=== PATIENT | female | born 1955 | race Caucasian/White ===

== ENCOUNTER 2021-03-23 10:15 | Outpatient (REF) | payer MEDICARE, SELFPAY ==
[2021-03-26 02:17] LABS: HPV mRNA E6/E7 Not Detected (Not Detected)
== END 2021-03-23 10:16 | disposition home or self-care (01) ==
LOC: HO.LAB 10:15
PROVIDERS: Visit Provider Internal Medicine
DX: Z12.4 Encounter for screening for malignant neoplasm of cervix (principal); Z11.51 Encounter for screening for human papillomavirus (HPV)
CPT/HCPCS: 87624; 88142

== ENCOUNTER 2021-04-09 07:13 | Outpatient (REF) | payer MEDICARE, SELFPAY ==
[2021-04-09 11:30] LABS: Hemoglobin 15.3 g/dl (12.0-16.0); Mean Corpuscular HGB Conc 33.3 g/dl (31.0-35.0); Mean Corpuscular Volume 87.1 fL (80.0-98.0); Mean Platelet Volume 12.1 fL (9.4-12.3); Platelet Count 172 X10*3/uL (160-400); Red Blood Count 5.28 X10*6/uL (4.20-5.50); Red Cell Distribution Width 12.4 % (11.0-16.0); White Blood Count 4.9 X10*3/uL (4.8-10.8)
[2021-04-09 11:38] LABS: Appearance Urine CLOUDY; Color Urine YELLOW; Glucose Urine UA 100 MG/DL (NEG); Leukocyte Esterase Urine NEG (NEG); Nitrite Urine NEG (NEG); PH 5.5 (5.0-8.0); Specific Gravity - Urine 1.025 (1.005-1.025); Urine Blood NEG (NEG); Urine Ketones NEG (NEG); Urine Protein TRACE MG/DL (NEG-TRACE)
[2021-04-09 11:57] LABS: Squamous Epithelial Cell Urine 3+ /LPF
[2021-04-09 11:58] LABS: Amorphous Sediment Urine 2+ /LPF
[2021-04-09 11:59] LABS: Bacteria Urine 1+ /LPF; RBC Urine 0 /HPF (0); WBC Urine 0-2 /HPF (0-4)
[2021-04-09 12:06] LABS: Alanine Aminotransferase 59 U/L (0-31); Albumin Level 4.3 g/dL (3.5-5.0); Alkaline Phosphatase 100 U/L (39-117); Anion Gap 14 (12-20); Aspartate Amino Transferase 44 U/L (5-31); Bilirubin Total 0.6 mg/dL (0.0-1.0); Blood Urea Nitrogen 14 mg/dL (9-16); Calcium 9.5 mg/dL (8.4-10.2); Carbon Dioxide 23 mmol/L (22-29); Chloride 104 mmol/L (96-108); Cholesterol 199 mg/dL; Estimated Glomerular Filt Rate > 60; Glucose Fasting 237 mg/dL (60-99); HDL Cholesterol 41 mg/dL; LDL Cholesterol Calculated 111 mg/dl; Potassium 4.4 mmol/L (3.3-5.1); Sodium 137 mmol/L (135-145); Total Protein 7.9 g/dL (6.5-8.0); Triglycerides 235 mg/dL
[2021-04-09 12:12] LABS: TSH reflex Free T4 1.69 uIU/mL (0.32-4.0)
== END 2021-04-09 07:14 | disposition home or self-care (01) ==
LOC: HO.HMGCLDS 07:13
PROVIDERS: PCP Internal Medicine; Visit Provider Internal Medicine
DX: Z00.00 Encounter for general adult medical examination without abnormal findings (principal); I10 Essential (primary) hypertension
CPT/HCPCS: 36415; 80053; 80061; 81001; 84443; 85027

== ENCOUNTER 2021-04-19 07:24 | Outpatient (REF) | payer MEDICARE, SELFPAY ==
[2021-04-19 12:14] LABS: Anion Gap 17 (12-20); Blood Urea Nitrogen 15 mg/dL (9-16); Carbon Dioxide 21 mmol/L (22-29); Chloride 103 mmol/L (96-108); Estimated Glomerular Filt Rate > 60; Glucose Fasting 232 mg/dL (60-99); Potassium 4.6 mmol/L (3.3-5.1); Sodium 136 mmol/L (135-145)
[2021-04-19 12:54] LABS: Estimated Average Glucose 249 mg/dL; Hemoglobin A1c % 10.3 %
== END 2021-04-19 07:25 | disposition home or self-care (01) ==
LOC: HO.HMGCLDS 07:24
PROVIDERS: PCP Internal Medicine; Visit Provider Internal Medicine
DX: R73.9 Hyperglycemia, unspecified (principal)
CPT/HCPCS: 36415; 80048; 83036

== ENCOUNTER → 2021-04-28 10:07 | Outpatient (BNVA) | payer MEDICARE, SELFPAY | PROVIDERS: PCP Internal Medicine; Visit Provider Dietitian, Registered | DX: E11.9 Type 2 diabetes mellitus without complications (principal) | CPT/HCPCS: 97802 ==

== ENCOUNTER 2021-05-27 10:57 | Outpatient (REF) | payer MEDICARE, SELFPAY ==
--- NOTE | ~2021-05-27 | MM_ITS ---
EXAMINATION: MM SCREENING DIGITAL BREAST TOMOSYNTHESIS, BILATERAL CLINICAL INFORMATION: Screening. Asymptomatic. The lifetime risk of breast cancer based on the Tyrer-Cuzick Model is 13%. COMPARISON: Mammography: February 26, 2016 and studies dating back to February 01, 2007 TECHNIQUE: Digital breast tomosynthesis is performed in both the craniocaudal and mediolateral oblique views along with computer-aided detection (CAD). Synthesized 2D images are generated from the tomosynthesis. FINDINGS: The breasts are almost entirely fatty (ACR BI-RADS breast composition Category a). There are no significant masses, abnormal calcifications, or other abnormalities. MM/MM tomosynthesis screening BI IMPRESSION: There are no significant changes from prior study. ASSESSMENT: BI-RADS 1: Negative RECOMMENDATION: Routine annual mammography screening. This patient's information was entered into a reminder system with a target due date for their next mammogram.
== END 2021-05-27 10:58 | disposition home or self-care (01) ==
LOC: HO.MAMMO 10:57
PROVIDERS: PCP Internal Medicine; Visit Provider Internal Medicine
DX: Z12.31 Encounter for screening mammogram for malignant neoplasm of breast (principal)
CPT/HCPCS: 77063; 77067

== ENCOUNTER → 2021-06-08 10:29 | Outpatient (BNVA) | payer MEDICARE, SELFPAY | PROVIDERS: PCP Internal Medicine; Referring Provider Internal Medicine; Visit Provider Nurse Practitioner | DX: Z12.11 Encounter for screening for malignant neoplasm of colon (principal) | CPT/HCPCS: 99202 ==

== ENCOUNTER → 2021-06-29 10:46 | Outpatient (BNVA) | payer MEDICARE, SELFPAY | PROVIDERS: PCP Internal Medicine; Visit Provider Dietitian, Registered | DX: E11.9 Type 2 diabetes mellitus without complications (principal) | CPT/HCPCS: 97803 ==

== ENCOUNTER 2021-07-30 07:22 | Outpatient (REF) | payer MEDICARE, SELFPAY ==
[2021-07-30 12:15] LABS: Alanine Aminotransferase 31 U/L (0-31); Albumin Level 4.6 g/dL (3.5-5.0); Alkaline Phosphatase 80 U/L (39-117); Anion Gap 16 (12-20); Aspartate Amino Transferase 25 U/L (5-31); Bilirubin Total 0.7 mg/dL (0.0-1.0); Blood Urea Nitrogen 22 mg/dL (9-16); Calcium 10.3 mg/dL (8.4-10.2); Carbon Dioxide 23 mmol/L (22-29); Chloride 104 mmol/L (96-108); Cholesterol 190 mg/dL; Estimated Glomerular Filt Rate > 60; Glucose Fasting 148 mg/dL (60-99); HDL Cholesterol 43 mg/dL; LDL Cholesterol Calculated 106 mg/dl; Potassium 4.2 mmol/L (3.3-5.1); Sodium 139 mmol/L (135-145); Total Protein 8.3 g/dL (6.5-8.0); Triglycerides 205 mg/dL
[2021-07-30 12:37] LABS: Estimated Average Glucose 151 mg/dL; Hemoglobin A1c % 6.9 %
[2021-07-30 12:41] LABS: Creatinine Urine 100.24 mg/dL; Microalbum/Creatinine Ratio Ur 62.8 ug/mg cr
== END 2021-07-30 07:23 | disposition home or self-care (01) ==
LOC: HO.HMGCLDS 07:22
PROVIDERS: Visit Provider Internal Medicine
DX: E11.9 Type 2 diabetes mellitus without complications (principal); I10 Essential (primary) hypertension
CPT/HCPCS: 36415; 80053; 80061; 82043; 83036

== ENCOUNTER 2021-11-05 07:57 | Outpatient (REF) | payer MEDICARE, SELFPAY ==
[2021-11-05 11:33] LABS: Estimated Average Glucose 143 mg/dL; Hemoglobin A1c % 6.6 %
[2021-11-05 11:59] LABS: Alanine Aminotransferase 30 U/L (0-31); Albumin Level 4.7 g/dL (3.5-5.0); Alkaline Phosphatase 82 U/L (39-117); Anion Gap 15 (12-20); Aspartate Amino Transferase 22 U/L (5-31); Bilirubin Total 0.5 mg/dL (0.0-1.0); Blood Urea Nitrogen 19 mg/dL (9-16); Carbon Dioxide 22 mmol/L (22-29); Chloride 104 mmol/L (96-108); Cholesterol 215 mg/dL; Estimated Glomerular Filt Rate > 60; Glucose Fasting 129 mg/dL (60-99); HDL Cholesterol 44 mg/dL; LDL Cholesterol Calculated 113 mg/dl; Potassium 4.4 mmol/L (3.3-5.1); Sodium 137 mmol/L (135-145); Total Protein 8.3 g/dL (6.5-8.0); Triglycerides 294 mg/dL
== END 2021-11-05 07:58 | disposition home or self-care (01) ==
LOC: HO.HMGCLDS 07:57
PROVIDERS: PCP Internal Medicine; Visit Provider Internal Medicine
DX: E11.9 Type 2 diabetes mellitus without complications (principal); I10 Essential (primary) hypertension
CPT/HCPCS: 36415; 80053; 80061; 83036

== ENCOUNTER 2022-03-16 07:38 | Outpatient (REF) | payer MEDICARE, SELFPAY ==
[2022-03-16 11:45] LABS: Estimated Average Glucose 143 mg/dL; Hemoglobin A1c % 6.6 %
[2022-03-16 11:51] LABS: Alanine Aminotransferase 31 U/L (0-31); Albumin Level 4.6 g/dL (3.5-5.0); Alkaline Phosphatase 76 U/L (39-117); Anion Gap 17 (12-20); Aspartate Amino Transferase 23 U/L (5-31); Bilirubin Total 0.4 mg/dL (0.0-1.0); Blood Urea Nitrogen 15 mg/dL (9-16); Calcium 9.9 mg/dL (8.4-10.2); Carbon Dioxide 22 mmol/L (22-29); Chloride 105 mmol/L (96-108); Cholesterol 199 mg/dL; Estimated Glomerular Filt Rate > 60; Glucose Fasting 131 mg/dL (60-99); HDL Cholesterol 42 mg/dL; LDL Cholesterol Calculated 105 mg/dl; Potassium 4.2 mmol/L (3.3-5.1); Sodium 140 mmol/L (135-145); Triglycerides 260 mg/dL
[2022-03-16 12:13] LABS: TSH reflex Free T4 2.57 uIU/mL (0.32-4.0)
[2022-03-16 12:14] LABS: Creatinine Urine 83.85 mg/dL; Microalbum/Creatinine Ratio Ur 29.8 ug/mg cr
== END 2022-03-16 07:39 | disposition home or self-care (01) ==
LOC: HO.HMGCLDS 07:38
PROVIDERS: PCP Internal Medicine; Visit Provider Internal Medicine
DX: I10 Essential (primary) hypertension (principal); E11.9 Type 2 diabetes mellitus without complications
CPT/HCPCS: 36415; 80053; 80061; 82043; 83036; 84443

== ENCOUNTER 2022-05-31 11:09 | Outpatient (REF) | payer MEDICARE, SELFPAY ==
--- NOTE | ~2022-05-31 | MM_ITS ---
EXAMINATION: MM SCREENING DIGITAL BREAST TOMOSYNTHESIS, BILATERAL CLINICAL INFORMATION: Screening. Asymptomatic. The lifetime risk of breast cancer based on the Tyrer-Cuzick Model is 10%. COMPARISON: Mammography: 05/27/2021, 02/26/2016 TECHNIQUE: Digital breast tomosynthesis is performed in both the craniocaudal and mediolateral oblique views along with computer-aided detection (CAD). Synthesized 2D images are generated from the tomosynthesis. FINDINGS: There are scattered areas of fibroglandular density (ACR BI-RADS breast composition Category b). There are no significant masses, abnormal calcifications, or other abnormalities. Parenchymal pattern is similar to prior studies. There is no developing density or architectural abnormality. The axilla and skin contours are unremarkable. No significant changes. MM/MM tomosynthesis screening BI IMPRESSION: No mammographic evidence of malignancy. ASSESSMENT: BI-RADS 1: Negative RECOMMENDATION: Routine annual mammography screening. This patient's information was entered into a reminder system with a target due date for their next mammogram.
== END 2022-05-31 11:10 | disposition home or self-care (01) ==
LOC: HO.MAMMO 11:09
PROVIDERS: PCP Internal Medicine; Visit Provider Internal Medicine
DX: Z12.31 Encounter for screening mammogram for malignant neoplasm of breast (principal)
CPT/HCPCS: 77063; 77067

== ENCOUNTER 2022-08-26 07:47 | Outpatient (REF) | payer MEDICARE, SELFPAY ==
[2022-08-26 12:04] LABS: Estimated Average Glucose 134 mg/dL; Hemoglobin A1c % 6.3 %
[2022-08-26 12:18] LABS: Creatinine Urine 68.88 mg/dL; Microalbum/Creatinine Ratio Ur 21.7 ug/mg cr
[2022-08-26 12:46] LABS: Alanine Aminotransferase 30 U/L (0-31); Albumin Level 4.6 g/dL (3.5-5.0); Alkaline Phosphatase 79 U/L (39-117); Anion Gap 16 (12-20); Aspartate Amino Transferase 23 U/L (5-31); Bilirubin Total 0.6 mg/dL (0.0-1.0); Blood Urea Nitrogen 19 mg/dL (9-16); Calcium 10.2 mg/dL (8.4-10.2); Carbon Dioxide 24 mmol/L (22-29); Chloride 105 mmol/L (96-108); Cholesterol 205 mg/dL; Estimated Glomerular Filt Rate > 60; Glucose Fasting 132 mg/dL (60-99); HDL Cholesterol 38 mg/dL; LDL Cholesterol Calculated 90 mg/dl; Potassium 4.7 mmol/L (3.3-5.1); Sodium 140 mmol/L (135-145); Triglycerides 389 mg/dL
== END 2022-08-26 07:48 | disposition home or self-care (01) ==
LOC: HO.HMGCLDS 07:47
PROVIDERS: PCP Internal Medicine; Visit Provider Internal Medicine
DX: E11.9 Type 2 diabetes mellitus without complications (principal); I10 Essential (primary) hypertension
CPT/HCPCS: 36415; 80053; 80061; 82043; 83036

== ENCOUNTER 2022-12-28 07:54 | Outpatient (REF) | payer MEDICARE, SELFPAY ==
[2022-12-28 11:32] LABS: MANUAL DIFF FLAG NO
[2022-12-28 11:45] LABS: Basophils Absolute Auto 0.1 X10*3/uL (0.0-0.2); Eosinophils Absolute Auto 0.1 X10*3/uL (0.0-0.4); Eosinophils Percent Auto 1.1 % (0-4); Hematocrit 46.7 % (37.0-47.0); Hemoglobin 15.2 g/dl (12.0-16.0); Imm Gran Abs Auto 0.01 X10*3/uL (0.00-0.03); Imm Gran Pct Auto 0.2 % (0.0-0.4); Lymphocytes Absolute Auto 2.4 X10*3/uL (1.2-4.9); Lymphocytes Percent Auto 38.4 % (20-40); Mean Corpuscular HGB Conc 32.5 g/dl (31.0-35.0); Mean Corpuscular Hemoglobin 29.1 pg (27.0-33.0); Mean Corpuscular Volume 89.3 fL (80.0-98.0); Mean Platelet Volume 11.2 fL (9.4-12.3); Monocytes Absolute Auto 0.5 X10*3/uL (0.1-1.2); Monocytes Percent Auto 7.3 % (2-11); Neutrophils Absolute Auto 3.2 x10*3/uL (2.0-8.3); Platelet Count 191 X10*3/uL (160-400); Red Blood Count 5.23 X10*6/uL (4.20-5.50); Red Cell Distribution Width 13.4 % (11.0-16.0); White Blood Count 6.1 X10*3/uL (4.8-10.8)
[2022-12-28 11:52] LABS: Estimated Average Glucose 134 mg/dL; Hemoglobin A1c % 6.3 %
[2022-12-28 12:12] LABS: Alanine Aminotransferase 37 U/L (0-31); Albumin Level 4.3 g/dL (3.5-5.0); Alkaline Phosphatase 70 U/L (39-117); Anion Gap 14 (12-20); Aspartate Amino Transferase 29 U/L (5-31); Bilirubin Total 0.4 mg/dL (0.0-1.0); Blood Urea Nitrogen 31 mg/dL (9-16); Calcium 9.9 mg/dL (8.4-10.2); Carbon Dioxide 20 mmol/L (22-29); Chloride 110 mmol/L (96-108); Cholesterol 194 mg/dL; Estimated Glomerular Filt Rate > 60; Glucose Fasting 115 mg/dL (60-99); HDL Cholesterol 43 mg/dL; LDL Cholesterol Calculated 107 mg/dl; Potassium 4.2 mmol/L (3.3-5.1); Sodium 140 mmol/L (135-145); Total Protein 7.9 g/dL (6.5-8.0); Triglycerides 220 mg/dL
[2022-12-28 12:28] LABS: Creatinine Urine 110.49 mg/dL; Microalbum/Creatinine Ratio Ur 17.1 ug/mg cr
== END 2022-12-28 07:55 | disposition home or self-care (01) ==
LOC: HO.HMGCLDS 07:54
PROVIDERS: PCP Internal Medicine; Visit Provider Internal Medicine
DX: E11.9 Type 2 diabetes mellitus without complications (principal); I10 Essential (primary) hypertension
CPT/HCPCS: 36415; 80053; 80061; 82043; 83036; 85025

== ENCOUNTER 2022-12-30 08:45 | Outpatient (AMB) | payer MEDICARE, SELFPAY ==
--- NOTE | 2022-12-30 08:45 | MHC.PC.OV ---
Vital Signs 12/30/22 08:46 Height 5 ft 8 in Weight 193 lb BMI 29.3 BP 130/80 Blood Pressure Location Lt brachial Position Sitting Pulse 85 Pulse Source Pulse Oximeter Pulse Oximetry (%) 96 Oxygen Delivery Method Room Air Intake Visit Reasons: 4M Follow up HTN Intake Note: Pt is here today for 4 months follow up visit. Allergies No Known Allergies Allergy (Verified 12/30/22 08:47) Medication List - Last Reconciled 12/30/22 by Nafisa Witt MD blood sugar diagnostic (OneTouch Ultra Test strips) 1 qd blood-glucose meter (I3 PrecisionTouch Ultra2 Meter) As directed empagliflozin (Jardiance) 25 mg PO DAILY irbesartan 300 mg PO DAILY lancets (OneTouch Delica Lancets) 1 QD metformin 850 mg PO DAILY Tobacco use date assessed: 08/30/22 Dental Screening Dental Screen Date: 12/30/22 Did you have a dental visit in the last 12 months?: Yes Did you have a dental problem in the last 6 months where you did not have access to dental care?: No Was dental information given to patient?: Patient has dentist HPI 4M Follow up HTN HPI Details Pt presents for f/u HTN, DM 2, stable on meds. Pt c/o R shoulder pain worse when lifting above head for 2 months. PFSH Medical History Annual physical exam Diarrhea DM type 2 (diabetes mellitus, type 2) Hyperglycemia Hypertension Surgical History H/O neck surgery History of colonoscopy History of right knee joint replacement Previous back surgery Family History Father Cancer Mother COPD (chronic obstructive pulmonary disease) Heart disease Social History Household Members Other:: walking, , 2 adults, 5 grandsons, Housing: Apartment Alcohol intake: current Alcohol intake frequency: a few times a month Patient Tobacco Use Status: Never used Tobacco e-Cigarette/Vaping Use: Never Used Second Hand Smoke Exposure: No Current occupational status: retired Cognitive needs: No Hearing needs: No Vision needs: Yes Questionnaire Thrive Questionnaire Date Thrive assessed: 08/30/22 VIN-7 AMB Questionnaire VIN-7 Date VIN - 7 assessed: 08/30/22 Source: Developed by Drs. Ryan Gates, Rosaline Stratton, Morgan Melchor and colleagues, with an educational praveen from [employer]. Review of Systems Const All systems reviewed & are unremarkable except as noted in HPI and below Reports no additional complaints Eyes Reports no additional complaints ENT Reports no additional complaints Card Reports no additional complaints Reports no additional complaints Musc Reports no additional complaints Physical exam (Primary Care) Vital Signs: Last Vital Signs Pulse 85 12/30/22 08:46 BP 130/80 12/30/22 08:46 Pulse Ox 96 12/30/22 08:46 Oxygen Delivery Method Room Air 12/30/22 08:46 BMI result Body Mass Index 29.3 Tobacco/Smoking Status: Tobacco use Status Tobacco use date assessed 08/30/22 12/30/22 08:45 Patient Tobacco Use Status Never used Tobacco 12/30/22 08:45 e-Cigarette/Vaping Use Never Used 12/30/22 08:45 Thrive Assessment: Date of Thrive Assessment Date Thrive assessed 08/30/22 12/30/22 08:45 Const General: no acute distress HENMT Head: Yes normal to inspection Ears: hearing grossly normal bilaterally Face and sinus: Yes normal facial exam Neck Neck: Yes supple Resp Effort & Inspection: normal respiratory effort Auscultation: clear to auscultation bilaterally Cardio Rhythm: regular rhythm Heart sounds: S1 normal heart sound present and S2 normal heart sound present GI Inspection: Yes normal to inspection Palpation (GI): Soft to palpation Percussion: Yes normal to percussion Auscultation: normal bowel sounds Extrem Other: decreased range of motion of the right shoulder, anterio- lateral aspect tenderness Assessment and Plan Assessment & Plan (1) Shoulder pain, right: Code(s): M25.511 - Pain in right shoulder Plan: Refer for physical therapy (2) DM type 2 (diabetes mellitus, type 2): Code(s): E11.9 - Type 2 diabetes mellitus without complications Plan: A1c is persistently at 6.3 ADA diet increase physical activity weight loss discussed with the patient. Ozempic 0.25 mg weekly will be added and patient will follow-up in 3 months with a fasting my before (3) Hypertension: Code(s): I10 - Essential (primary) hypertension Plan: Continue current medications Orders: Orders PT Evaluation and Treatment Today E11.9 - Type 2 diabetes mellitus without complications, I10 - Essential (primary) hypertension, M25.511 - Pain in right shoulder Comprehensive [place]. Panel Fast 3 Months E11.9 - Type 2 diabetes mellitus without complications, I10 - Essential (primary) hypertension Complete Blood Count Auto Diff 3 Months E11.9 - Type 2 diabetes mellitus without complications, I10 - Essential (primary) hypertension Hemoglobin A1c 3 Months E11.9 - Type 2 diabetes mellitus without complications, I10 - Essential (primary) hypertension Lipid Panel 3 Months E11.9 - Type 2 diabetes mellitus without complications, I10 - Essential (primary) hypertension Microalbumin, Random (w Creat) 3 Months E11.9 - Type 2 diabetes mellitus without complications, I10 - Essential (primary) hypertension Medications: New semaglutide (Ozempic) 0.25 mg (0.368 mL) subcut QWEEK 9 mL 1RF Coding Level of Care Code Est Pt Level 4 (66649) Diagnoses Shoulder pain, right M25.511 DM type 2 (diabetes mellitus, type 2) E11.9 Hypertension I10
[2022-12-30 08:46] VITALS: BP 130/80; PULSE 85; O2SAT 96; BMI 29.3
== END 2022-12-30 09:13 | disposition home or self-care (01) ==
PROVIDERS: PCP Internal Medicine; Visit Provider Internal Medicine
DX: M25.511 Pain in right shoulder (principal); E11.9 Type 2 diabetes mellitus without complications; I10 Essential (primary) hypertension
CPT/HCPCS: 99214

== ENCOUNTER 2023-01-24 11:00 | Outpatient (RCR) | payer MEDICARE, SELFPAY ==
--- NOTE | 2023-01-09 11:45 | MHC.PT.EP ---
[facility] [place] Office [place] Office [place] Office [address] Galina Richards [address] [phone] F: [phone] F: [phone] F: [phone] F: [phone] Physical Therapy Plan of Care Date of Evaluation: Date of Surgery: n/a Diagnosis: pain in R shoulder Assessment: Patient is a 67 year old female presenting to PT with complaints of pain in her R shoulder. Pt reports onset of pain began about 3 months ago due to insidious onset. She presents today with impairments in pain, ROM, shoulder strength, posture. Pt's current occupation is retired, with baseline physical activities including reaching, lifting, ADLs, cooking, lifting grandkids. Pt expresses shelter goal of reducing pain, and is motivated to work towards this in PT. Clinical presentation today is most consistent with signs and sx associated with possible R RC tendonitis and pt will benefit from skilled PT 2 week x 4 weeks to address the following problems and impairments noted upon evaluation: pain, ROM, shoulder strength, posture. These problems limit the patient with the following functional activities: reaching, lifting, ADLs, cooking, lifting grandkids . The prescribed treatment plan of care is medically necessary. Co-morbidities of HTN, T2DM were identified and taken into considerations of plan of care. Pt was educated on HEP, role of PT, prognosis, POC. Frequency and Duration: The patient will be seen 2 x week x 4 weeks Short Term Goals: Pt will demonstrate shoulder ROM equal B in 2 weeks. Pt will demonstrate improved R shoulder MMT strength 5/5 in 2 weeks. Pt will demonstrate improved postural awareness by sitting with biomechanically correct posture without cues throughout session to improve overall postural function in 2 weeks. C Architect Goals: Pt will demonstrate improved SPADI score by 13 points in 4 weeks for improved functional mobility. Pt will demonstrate ability to reach and lift with min to no pain in 4 weeks for improved tolerance to ADLs. Pt will demonstrate ability to cook including chopping and cookie decorating in 4 weeks with min to no pain. Treatment Plan: Modalities to reduce pain, spasms and effusion. Manual therapy to restore motion and function. Therapeutic exercise to improve strength and flexibility. Neuromuscular re-education for posture and balance. Therapeutic activities to return to functional activities of daily living. Electronically signed by: Yohana Rajan, PT, DPT, ATC Please sign and return to therapist. Thank you for your referral.
--- NOTE | 2023-01-30 08:51 | MHC.PT.DC ---
[facility] [place] Office [place] Office [place] Office [address] Galina Richards 140 [facility] [phone] F: [phone] F: [phone] F: [phone] F: [phone] Physical Therapy Discharge Report Diagnosis: pain in R shoulder Date of Surgery: n/a Date of Evaluation: 01/09/23 Date of Discharge: 01/30/23 Treatments to Date: 4 Cancellations to Date: 0 No Shows to Date: 0 Discharge Status: Improved Function Patient Elected to Stop Discharge Summary: Pt self d/c stating she feels better. Electronically signed by: Yohana Rajan, PT, DPT, ATC Please sign and return to therapist. Thank you for your referral.
== END 2023-01-30 08:51 | disposition home or self-care (01) ==
LOC: HO.PTCHIC 11:00
PROVIDERS: PCP Internal Medicine; Visit Provider Internal Medicine
DX: M25.511 Pain in right shoulder (principal)
CPT/HCPCS: 97110; 97161

== ENCOUNTER 2023-04-06 08:01 | Outpatient (REF) | payer MEDICARE, SELFPAY ==
[2023-04-06 11:12] LABS: MANUAL DIFF FLAG NO
[2023-04-06 11:15] LABS: Basophils Absolute Auto 0.1 X10*3/uL (0.0-0.2); Basophils Percent Auto 0.9 % (0-2); Eosinophils Absolute Auto 0.1 X10*3/uL (0.0-0.4); Eosinophils Percent Auto 0.9 % (0-4); Hematocrit 47.7 % (37.0-47.0); Hemoglobin 15.3 g/dl (12.0-16.0); Imm Gran Abs Auto 0.01 X10*3/uL (0.00-0.03); Imm Gran Pct Auto 0.2 % (0.0-0.4); Lymphocytes Absolute Auto 1.8 X10*3/uL (1.2-4.9); Mean Corpuscular HGB Conc 32.1 g/dl (31.0-35.0); Mean Corpuscular Hemoglobin 28.2 pg (27.0-33.0); Mean Corpuscular Volume 87.8 fL (80.0-98.0); Mean Platelet Volume 10.9 fL (9.4-12.3); Monocytes Absolute Auto 0.4 X10*3/uL (0.1-1.2); Monocytes Percent Auto 6.6 % (2-11); Neutrophils Absolute Auto 3.4 x10*3/uL (2.0-8.3); Neutrophils Percent Auto 59.4 % (45-73); Platelet Count 198 X10*3/uL (160-400); Red Blood Count 5.43 X10*6/uL (4.20-5.50); White Blood Count 5.6 X10*3/uL (4.8-10.8)
[2023-04-06 11:20] LABS: Estimated Average Glucose 120 mg/dL; Hemoglobin A1c % 5.8 % (<6.0)
[2023-04-06 11:41] LABS: Alanine Aminotransferase 30 U/L (0-31); Albumin Level 4.2 g/dL (3.5-5.0); Alkaline Phosphatase 75 U/L (39-117); Anion Gap 12 (12-20); Aspartate Amino Transferase 27 U/L (5-31); Bilirubin Total 0.4 mg/dL (0.0-1.0); Blood Urea Nitrogen 19 mg/dL (9-16); Calcium 9.9 mg/dL (8.4-10.2); Carbon Dioxide 26 mmol/L (22-29); Chloride 106 mmol/L (96-108); Cholesterol 167 mg/dL (<200); Estimated Glomerular Filt Rate > 60; Glucose Fasting 91 mg/dL (60-99); HDL Cholesterol 38 mg/dL (>40); LDL Cholesterol Calculated 90 mg/dL (<100); Potassium 4.1 mmol/L (3.3-5.1); Sodium 140 mmol/L (135-145); Triglycerides 199 mg/dL (<150)
[2023-04-06 11:51] LABS: Creatinine Urine 106.14 mg/dL; Microalbum/Creatinine Ratio Ur 34.8 ug/mg cr (<30)
== END 2023-04-06 08:02 | disposition home or self-care (01) ==
LOC: HO.HMGCLDS 08:01
PROVIDERS: PCP Internal Medicine; Visit Provider Internal Medicine
DX: E11.9 Type 2 diabetes mellitus without complications (principal); I10 Essential (primary) hypertension
CPT/HCPCS: 36415; 80053; 80061; 82043; 82570; 83036; 85025

== ENCOUNTER 2023-04-07 12:18 | Outpatient (AMB) | payer MEDICARE, SELFPAY ==
--- NOTE | 2023-04-07 12:20 | MHC.PC.OV ---
Vital Signs 04/07/23 12:22 Height 5 ft 8 in Weight 194 lb BMI 29.5 BP 118/86 Blood Pressure Location Lt brachial Position Sitting Pulse 87 Pulse Source Pulse Oximeter Pulse Oximetry (%) 96 Oxygen Delivery Method Room Air Intake Visit Reasons: 3 month fu Intake Note: Pt is here today for her 3 months f/u Allergies No Known Allergies Allergy (Verified 04/07/23 12:23) Medication List - Last Reconciled 04/07/23 by Nafisa Witt MD blood sugar diagnostic ([employer] Ultra Test strips) 1 qd blood-glucose meter ([employer] Ultra2 Meter) As directed empagliflozin (Jardiance) 25 mg PO DAILY irbesartan 300 mg PO DAILY lancets (OneTouch Delica Lancets) 1 QD metformin 850 mg PO DAILY semaglutide (Ozempic) 0.25 mg (0.368 mL) subcut QWEEK Tobacco use date assessed: 04/07/23 Fall risk assessment: No Falls in past year Last assessed Fall Risk: 04/07/23 Dental Screening Dental Screen Date: 04/07/23 Did you have a dental visit in the last 12 months?: Yes Did you have a dental problem in the last 6 months where you did not have access to dental care?: Yes Was dental information given to patient?: Patient has dentist HPI 3 month fu HPI Details Pt presents for f/u DM2, HTN, stable on meds PFSH Medical History Annual physical exam Diarrhea DM type 2 (diabetes mellitus, type 2) Hyperglycemia Hypertension Surgical History H/O neck surgery History of colonoscopy History of right knee joint replacement Previous back surgery Family History Father Cancer Mother COPD (chronic obstructive pulmonary disease) Heart disease Social History Household Members Other:: walking, , 2 adults, 5 grandsons, Housing: Apartment Alcohol intake: current Alcohol intake frequency: a few times a month Patient Tobacco Use Status: Never used Tobacco e-Cigarette/Vaping Use: Never Used Second Hand Smoke Exposure: No Current occupational status: retired Cognitive needs: No Hearing needs: No Vision needs: Yes Questionnaire Thrive Questionnaire Date Thrive assessed: 08/30/22 VIN-7 AMB Questionnaire VIN-7 Date VIN - 7 assessed: 08/30/22 Source: Developed by Drs. Ryan Gates, Rosaline Stratton, Morgan Melchor and colleagues, with an educational praveen from [employer]. Review of Systems Const All systems reviewed & are unremarkable except as noted in HPI and below Reports no additional complaints Eyes Reports no additional complaints ENT Reports no additional complaints Card Reports no additional complaints Resp Reports no additional complaints GI Reports no additional complaints Reports no additional complaints Physical exam (Primary Care) Vital Signs: Last Vital Signs Pulse 87 04/07/23 12:22 BP 118/86 04/07/23 12:22 Pulse Ox 96 04/07/23 12:22 Oxygen Delivery Method Room Air 04/07/23 12:22 BMI result Body Mass Index 29.5 Tobacco/Smoking Status: Tobacco use Status Tobacco use date assessed 04/07/23 04/07/23 12:25 Patient Tobacco Use Status Never used Tobacco 04/07/23 12:20 e-Cigarette/Vaping Use Never Used 04/07/23 12:20 Thrive Assessment: Date of Thrive Assessment Date Thrive assessed 08/30/22 04/07/23 12:20 Const General: no acute distress HENMT Head: Yes normal to inspection Face and sinus: Yes normal facial exam Throat: Yes posterior oropharynx normal Neck Neck: Yes no lymphadenopathy and Yes supple Resp Effort & Inspection: normal respiratory effort Auscultation: clear to auscultation bilaterally Cardio Rhythm: regular rhythm Heart sounds: S1 normal heart sound present and S2 normal heart sound present GI Inspection: Yes normal to inspection Palpation (GI): Soft to palpation Percussion: Yes normal to percussion Auscultation: normal bowel sounds Assessment and Plan Assessment & Plan (1) DM type 2 (diabetes mellitus, type 2): Code(s): E11.9 - Type 2 diabetes mellitus without complications Plan: A1C is 5.8, cont ADA diet, exercise weight loss. increase Ozempic to 0.5 weekly, f/u 4 months (2) Hypertension: Code(s): I10 - Essential (primary) hypertension Plan: cont med (3) Hyperlipemia: Comment: diet controlled Code(s): E78.5 - Hyperlipidemia, unspecified Plan: improving Orders: Orders Lipid Panel 4 Months E11.9 - Type 2 diabetes mellitus without complications, I10 - Essential (primary) hypertension Comprehensive [place]. Panel Fast 4 Months E11.9 - Type 2 diabetes mellitus without complications, I10 - Essential (primary) hypertension Complete Blood Count Auto Diff 4 Months E11.9 - Type 2 diabetes mellitus without complications, I10 - Essential (primary) hypertension Hemoglobin A1c 4 Months E11.9 - Type 2 diabetes mellitus without complications, I10 - Essential (primary) hypertension Microalbumin, Random (w Creat) 4 Months E11.9 - Type 2 diabetes mellitus without complications, I10 - Essential (primary) hypertension Medications: New meloxicam 15 mg PO DAILY 10 tabs 0RF Changed From semaglutide (Ozempic) 0.25 mg (0.368 mL) subcut QWEEK 9 mL 1RF To semaglutide (Ozempic) 0.5 mg (0.736 mL) subcut QWEEK 9 mL 2RF Coding Level of Care Code Est Pt Level 4 (19578) Diagnoses DM type 2 (diabetes mellitus, type 2) E11.9 Hypertension I10 Hyperlipemia E78.5
[2023-04-07 12:22] VITALS: BP 118/86; PULSE 87; O2SAT 96; BMI 29.5
== END 2023-04-07 12:50 | disposition home or self-care (01) ==
PROVIDERS: PCP Internal Medicine; Visit Provider Internal Medicine
DX: E11.9 Type 2 diabetes mellitus without complications (principal); I10 Essential (primary) hypertension; E78.5 Hyperlipidemia, unspecified
CPT/HCPCS: 99214

== ENCOUNTER 2023-08-08 07:21 | Outpatient (REF) | payer MEDICARE, SELFPAY ==
[2023-08-08 11:35] LABS: MANUAL DIFF FLAG NO
[2023-08-08 11:44] LABS: Basophils Absolute Auto 0.1 X10*3/uL (0.0-0.2); Eosinophils Absolute Auto 0.1 X10*3/uL (0.0-0.4); Eosinophils Percent Auto 1.2 % (0-4); Hematocrit 49.4 % (37.0-47.0); Imm Gran Abs Auto 0.03 X10*3/uL (0.00-0.03); Imm Gran Pct Auto 0.4 % (0.0-0.4); Lymphocytes Absolute Auto 2.5 X10*3/uL (1.2-4.9); Lymphocytes Percent Auto 30.5 % (20-40); Mean Corpuscular HGB Conc 32.4 g/dl (31.0-35.0); Mean Corpuscular Hemoglobin 28.3 pg (27.0-33.0); Mean Corpuscular Volume 87.3 fL (80.0-98.0); Mean Platelet Volume 11.1 fL (9.4-12.3); Monocytes Absolute Auto 0.4 X10*3/uL (0.1-1.2); Monocytes Percent Auto 5.4 % (2-11); Neutrophils Percent Auto 61.5 % (45-73); Platelet Count 215 X10*3/uL (160-400); Red Blood Count 5.66 X10*6/uL (4.20-5.50); Red Cell Distribution Width 14.1 % (11.0-16.0); White Blood Count 8.2 X10*3/uL (4.8-10.8)
[2023-08-08 11:51] LABS: Estimated Average Glucose 117 mg/dL; Hemoglobin A1C 152.4122 umol/L; Hemoglobin A1c % 5.7 % (<6.0)
[2023-08-08 12:09] LABS: Alanine Aminotransferase 28 U/L (0-31); Albumin Level 4.4 g/dL (3.5-5.0); Alkaline Phosphatase 94 U/L (39-117); Anion Gap 14 (12-20); Aspartate Amino Transferase 23 U/L (5-31); Bilirubin Total 0.4 mg/dL (0.0-1.0); Blood Urea Nitrogen 25 mg/dL (9-16); Calcium 10.1 mg/dL (8.4-10.2); Carbon Dioxide 21 mmol/L (22-29); Chloride 108 mmol/L (96-108); Cholesterol 184 mg/dL (<200); Estimated Glomerular Filt Rate > 60; Glucose Fasting 96 mg/dL (60-99); HDL Cholesterol 40 mg/dL (>40); LDL Cholesterol Calculated 99 mg/dL (<100); Potassium 4.4 mmol/L (3.3-5.1); Sodium 139 mmol/L (135-145); Total Protein 8.5 g/dL (6.5-8.0); Triglycerides 225 mg/dL (<150)
== END 2023-08-08 07:22 | disposition home or self-care (01) ==
LOC: HO.HMGCLDS 07:21
PROVIDERS: PCP Internal Medicine; Visit Provider Internal Medicine
DX: E11.9 Type 2 diabetes mellitus without complications (principal); I10 Essential (primary) hypertension
CPT/HCPCS: 36415; 80053; 80061; 83036; 85025

== ENCOUNTER 2023-08-09 07:30 | Outpatient (REF) | payer MEDICARE, SELFPAY ==
[2023-08-09 14:05] LABS: Creatinine Urine 90.81 mg/dL; Microalbum/Creatinine Ratio Ur 14.3 ug/mg cr (<30)
== END 2023-08-09 07:31 | disposition home or self-care (01) ==
LOC: HO.HMGCLNP 07:30
PROVIDERS: PCP Internal Medicine; Visit Provider Internal Medicine
DX: I10 Essential (primary) hypertension (principal); E11.65 Type 2 diabetes mellitus with hyperglycemia
CPT/HCPCS: 82043; 82570

== ENCOUNTER 2023-08-09 10:00 | Outpatient (AMB) | payer MEDICARE, SELFPAY ==
--- NOTE | 2023-08-09 10:34 | A.OFFPC_ITS ---
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[employer] Type Required: No Information Interpreted: non-clinical & clinical Accompanied by: Self / Same As Patient Allergies No Known Allergies Allergy (Verified 08/09/23 10:36) Medication List - Last Reconciled 08/09/23 by Nafisa Witt MD blood sugar diagnostic (MangoPlateTouch Ultra Test strips) 1 qd blood-glucose meter ([place] Ultra2 Meter) As directed empagliflozin (Jardiance) 25 mg PO DAILY irbesartan 300 mg PO DAILY lancets (OneTouch Delica Lancets) 1 QD meloxicam 15 mg PO DAILY metformin 850 mg PO DAILY semaglutide (Ozempic) 0.5 mg (0.736 mL) subcut QWEEK Tobacco use date assessed: 08/09/23 Last assessed Fall Risk: 08/09/23 Dental Screening Dental Screen Date: 08/09/23 Did you have a dental visit in the last 12 months?: Yes Did you have a dental problem in the last 6 months where you did not have access to dental care?: No Was dental information given to patient?: Patient has dentist HPI 4 Month F/U HPI Details Pt presents for f/u DM 2, HTN, stable on meds. PFSH Medical History Diarrhea DM type 2 (diabetes mellitus, type 2) Hyperglycemia Annual physical exam Hypertension Surgical History History of colonoscopy H/O neck surgery Previous back surgery History of right knee joint replacement Family History Father Cancer Mother COPD (chronic obstructive pulmonary disease) Heart disease Social History Household Members Other:: walking, , 2 adults, 5 grandsons, Housing: Apartment Alcohol intake: current Alcohol intake frequency: a few times a month Patient Tobacco Use Status: Never used Tobacco e-Cigarette/Vaping Use: Never Used Second Hand Smoke Exposure: No Current occupational status: retired Cognitive needs: No Hearing needs: No Vision needs: Yes Questionnaire PHQ-9 Over the last 2 weeks, how often have you been bothered by any of the following problems? 1. Little interest or pleasure in doing things: not at all 2. Feeling down, depressed, or hopeless: not at all 3. Trouble falling or staying asleep, or sleeping too much: nearly every day 4. Feeling tired or having little energy: several days 5. Poor appetite or overeating: not at all 6. Feeling bad about yourself - or that you are a failure or have let yourself or your family down: not at all 8. Moving or speaking so slowly that other people could have noticed. Or the opposite - being so fidgety or restless that you have been moving around a lot more than usual: not at all 9. Thoughts that you would be better off or of hurting yourself in some way: not at all Depression Screening Interpretation: Negative Depression Screening Done: Yes Source: Developed by Drs. Ryan Gates, Rosaline Stratton, Morgan Melchor and colleagues, with an educational praveen from [employer]. Thrive Questionnaire Date Thrive assessed: 08/30/22 AUDIT C Alcohol Use Questionnaire (AUDIT-C) 1. How often do you have a drink containing alcohol?: 2-4 times a month 2. How many drinks containing alcohol do you have on a typical day when you are drinking?: 1 or 2 3. How often do you have six or more drinks on one occasion?: Never Total Score: 2 VIN-7 AMB Questionnaire VIN-7 Date VIN - 7 assessed: 08/30/22 Feeling nervous, anxious, or on edge: 0 = Not at all Not being able to stop or control worryin = Not at all Worrying too much about different things: 0 = Not at all Trouble relaxin = Not at all Being so restless that it is hard to sit still: 0 = Not at all Becoming easily annoyed or irritable: 0 = Not at all Feeling afraid as if something awful might happen: 0 = Not at all Total VIN-7 score (0-4 normal; 5-9 mild; 10-14 moderate; 15-21 severe): 0 Source: Developed by Drs. Ryan Gates, Rosaline Stratton, Morgan Melchor and colleagues, with an educational praveen from [employer]. Review of Systems Const All systems reviewed & are unremarkable except as noted in HPI and below Reports no additional complaints Eyes Reports no additional complaints ENT Reports no additional complaints Card Reports no additional complaints Resp Reports no additional complaints GI Reports no additional complaints Reports no additional complaints Physical exam (Primary Care) Vital Signs: Last Vital Signs Pulse 80 08/09/23 10:39 BP 122/72 08/09/23 10:39 Pulse Ox 97 08/09/23 10:39 Oxygen Delivery Method Room Air 08/09/23 10:39 BMI result Body Mass Index 29.5 Tobacco/Smoking Status: Tobacco use Status Tobacco use date assessed 08/09/23 08/09/23 10:39 Patient Tobacco Use Status Never used Tobacco 08/09/23 10:39 e-Cigarette/Vaping Use Never Used 08/09/23 10:39 Depression Screening Interpretation: Negative Thrive Assessment: Date of Thrive Assessment Date Thrive assessed 08/30/22 08/09/23 10:39 Const General: no acute distress HENMT Head: Yes normal to inspection Mouth: Normal oral and palatal mucosa present Throat: Yes posterior oropharynx normal Eyes General: appearance normal, both eyes and all related structures Neck Neck: Yes no lymphadenopathy and Yes supple Resp Effort & Inspection: normal respiratory effort Auscultation: clear to auscultation bilaterally Cardio Rhythm: regular rhythm Heart sounds: S1 normal heart sound present and S2 normal heart sound present GI Inspection: Yes normal to inspection Palpation (GI): Soft to palpation Percussion: Yes normal to percussion Auscultation: normal bowel sounds Assessment and Plan Assessment & Plan (1) DM type 2 (diabetes mellitus, type 2): Code(s): E11.9 - Type 2 diabetes mellitus without complications Plan: A1c is 5.7, continue current medications ADA diet regular exercise and weight loss discussed with the patient follow-up in 5 months with a fasting labs before (2) Hypertension: Code(s): I10 - Essential (primary) hypertension Plan: Continue Avapro Orders: Orders Hemoglobin A1c 5 Months E11.9 - Type 2 diabetes mellitus without complications, I10 - Essential (primary) hypertension, R73.9 - Hyperglycemia, unspecified Comprehensive [place]. Panel Fast 5 Months E11.9 - Type 2 diabetes mellitus without complications, I10 - Essential (primary) hypertension, R73.9 - Hyperglycemia, unspecified Complete Blood Count Auto Diff 5 Months E11.9 - Type 2 diabetes mellitus without complications, I10 - Essential (primary) hypertension, R73.9 - Hyperglycemia, unspecified Lipid Panel 5 Months E11.9 - Type 2 diabetes mellitus without complications, I10 - Essential (primary) hypertension, R73.9 - Hyperglycemia, unspecified Microalbumin, Random (w Creat) 5 Months E11.9 - Type 2 diabetes mellitus without complications, I10 - Essential (primary) hypertension, R73.9 - Hyperglycemia, unspecified Referrals Cologuard Test Z12.11 - Encounter for screening for malignant neoplasm of colon, Z12.12 - Encounter for screening for malignant neoplasm of rectum Coding Level of Care Code Est Pt Level 3 (51422) Diagnoses DM type 2 (diabetes mellitus, type 2) E11.9 Hypertension I10
[2023-08-09 10:39] VITALS: BP 122/72; PULSE 80; O2SAT 97; BMI 29.5
== END 2023-08-09 11:07 | disposition home or self-care (01) ==
PROVIDERS: PCP Internal Medicine; Visit Provider Internal Medicine
DX: E11.9 Type 2 diabetes mellitus without complications (principal); I10 Essential (primary) hypertension
CPT/HCPCS: 99213

== ENCOUNTER 2023-12-25 07:56 | Outpatient (REF) | payer MEDICARE, SELFPAY ==
[2023-12-25 10:09] LABS: MANUAL DIFF FLAG NO
[2023-12-25 10:14] LABS: Basophils Absolute Auto 0.1 X10*3/uL (0.0-0.2); Basophils Percent Auto 1.2 % (0-2); Eosinophils Absolute Auto 0.1 X10*3/uL (0.0-0.4); Eosinophils Percent Auto 1.2 % (0-4); Hematocrit 50.2 % (37.0-47.0); Hemoglobin 16.4 g/dl (12.0-16.0); Imm Gran Abs Auto 0.02 X10*3/uL (0.00-0.03); Imm Gran Pct Auto 0.3 % (0.0-0.4); Lymphocytes Absolute Auto 2.3 X10*3/uL (1.2-4.9); Lymphocytes Percent Auto 33.8 % (20-40); Mean Corpuscular HGB Conc 32.7 g/dl (31.0-35.0); Mean Corpuscular Hemoglobin 28.6 pg (27.0-33.0); Mean Corpuscular Volume 87.5 fL (80.0-98.0); Mean Platelet Volume 10.7 fL (9.4-12.3); Monocytes Absolute Auto 0.5 X10*3/uL (0.1-1.2); Monocytes Percent Auto 7.3 % (2-11); Neutrophils Absolute Auto 3.8 x10*3/uL (2.0-8.3); Neutrophils Percent Auto 56.2 % (45-73); Platelet Count 241 X10*3/uL (160-400); Red Blood Count 5.74 X10*6/uL (4.20-5.50); Red Cell Distribution Width 14.3 % (11.0-16.0); White Blood Count 6.7 X10*3/uL (4.8-10.8)
[2023-12-25 10:44] LABS: Alanine Aminotransferase 34 U/L (0-31); Albumin Level 4.5 g/dL (3.5-5.0); Alkaline Phosphatase 77 U/L (39-117); Anion Gap 14 (12-20); Aspartate Amino Transferase 24 U/L (5-31); Bilirubin Total 0.6 mg/dL (0.0-1.0); Blood Urea Nitrogen 23 mg/dL (9-16); Calcium 10.7 mg/dL (8.4-10.2); Carbon Dioxide 24 mmol/L (22-29); Chloride 104 mmol/L (96-108); Cholesterol 197 mg/dL (<200); Estimated Glomerular Filt Rate > 60; Glucose Fasting 100 mg/dL (60-99); HDL Cholesterol 42 mg/dL (>40); LDL Cholesterol Calculated 96 mg/dL (<100); Potassium 4.5 mmol/L (3.3-5.1); Sodium 137 mmol/L (135-145); Total Protein 8.4 g/dL (6.5-8.0); Triglycerides 296 mg/dL (<150)
[2023-12-25 10:51] LABS: Estimated Average Glucose 114 mg/dL; Hemoglobin A1c % 5.6 % (<6.0)
== END 2023-12-25 07:57 | disposition home or self-care (01) ==
LOC: HO.HMGCLDS 07:56
PROVIDERS: PCP Internal Medicine; Visit Provider Internal Medicine
DX: R73.9 Hyperglycemia, unspecified (principal); E11.9 Type 2 diabetes mellitus without complications; I10 Essential (primary) hypertension
CPT/HCPCS: 36415; 80053; 80061; 83036; 85025

== ENCOUNTER 2023-12-27 09:55 | Outpatient (AMB) | payer MEDICARE, SELFPAY ==
[2023-12-27 09:57] VITALS: BP 136/84; PULSE 87; O2SAT 95; BMI 29.5
--- NOTE | 2023-12-27 09:57 | MHC.PC.OV ---
Vital Signs 12/27/23 09:57 Height 5 ft 8 in Weight 194 lb BMI 29.5 BP 136/84 Blood Pressure Location Lt brachial Position Sitting Pulse 87 Pulse Source Pulse Oximeter Pulse Oximetry (%) 95 Oxygen Delivery Method Room Air Intake Visit Reasons: 5M F/U Intake Note: Pt is here today for 5 months follow up visit on labs. Allergies No Known Allergies Allergy (Verified 12/27/23 10:07) Medication List - Last Reconciled 12/27/23 by Nafisa Witt MD blood sugar diagnostic (DemdexTouch Ultra Test strips) 1 qd blood-glucose meter (OpenRentuch Ultra2 Meter) As directed empagliflozin (Jardiance) 25 mg PO DAILY irbesartan 300 mg PO DAILY lancets (OneTouch Delica Lancets) 1 QD metformin 850 mg PO DAILY semaglutide (Ozempic) 0.5 mg (0.736 mL) subcut QWEEK Tobacco use date assessed: 12/27/23 Fall risk assessment: 1 Fall in past year Last assessed Fall Risk: 12/27/23 Dental Screening Dental Screen Date: 12/27/23 Did you have a dental visit in the last 12 months?: Yes Did you have a dental problem in the last 6 months where you did not have access to dental care?: No Was dental information given to patient?: Patient has dentist HPI 5M F/U HPI Details Pt presents for f/u DM 2, HTN, stable on meds. Pt c/o diarrhea from Metformin on and off. PFSH Medical History Diarrhea DM type 2 (diabetes mellitus, type 2) Hyperglycemia Annual physical exam Hypertension Surgical History History of colonoscopy H/O neck surgery Previous back surgery History of right knee joint replacement Family History Father Cancer Mother COPD (chronic obstructive pulmonary disease) Heart disease Social History Household Members Other:: walking, , 2 adults, 5 grandsons, Housing: Apartment Alcohol intake: current Alcohol intake frequency: a few times a month Patient Tobacco Use Status: Never used Tobacco e-Cigarette/Vaping Use: Never Used Second Hand Smoke Exposure: No service: No Current occupational status: retired Cognitive needs: No Hearing needs: No Vision needs: Yes Questionnaire PHQ-9 Over the last 2 weeks, how often have you been bothered by any of the following problems? 1. Little interest or pleasure in doing things: not at all 2. Feeling down, depressed, or hopeless: not at all 3. Trouble falling or staying asleep, or sleeping too much: several days 4. Feeling tired or having little energy: several days 5. Poor appetite or overeating: not at all 6. Feeling bad about yourself - or that you are a failure or have let yourself or your family down: not at all 7. Trouble concentrating on things, such as reading the newspaper or watching television: not at all 8. Moving or speaking so slowly that other people could have noticed. Or the opposite - being so fidgety or restless that you have been moving around a lot more than usual: not at all 9. Thoughts that you would be better off or of hurting yourself in some way: not at all Total score: 2 Depression Screening Interpretation: Negative Depression Screening Done: Yes Source: Developed by Drs. Ryan Gates, Rosaline Stratton, Morgan Melchor and colleagues, with an educational praveen from [employer]. Thrive Questionnaire Date Thrive assessed: 12/27/23 I am a: Patient What is your living situation today?: I have a steady place to live Within the past 12 months, did the food you bought not last and you didn't have the money to get more?: Never true Within the past 12 months, did you worry whether your food would run out before you got money to buy more?: Never true Do you have trouble paying for medicines?: No Do you have trouble getting transportation to medical appointments?: No Do you have trouble paying your heating and electricity bill?: No Do you have trouble taking care of your child, family member or friend?: No Do you have trouble with day-to-day activities such as bathing, preparing meals, shopping, managing finances, etc.?: No Are you currently unemployed and looking for a job?: No Are you interested in more education?: No Please select the resources that you would like help with: Housing/Longterm Currently or been in a relationship where the following occur: No concerns reported THRIVE Score: 0 AUDIT C Alcohol Use Questionnaire (AUDIT-C) 1. How often do you have a drink containing alcohol?: 2-4 times a month 2. How many drinks containing alcohol do you have on a typical day when you are drinking?: 1 or 2 3. How often do you have six or more drinks on one occasion?: Less than monthly Total Score: 3 VIN-7 AMB Questionnaire VIN-7 Date VIN - 7 assessed: 12/27/23 Feeling nervous, anxious, or on edge: 0 = Not at all Not being able to stop or control worryin = Not at all Worrying too much about different things: 0 = Not at all Trouble relaxin = Not at all Being so restless that it is hard to sit still: 0 = Not at all Becoming easily annoyed or irritable: 0 = Not at all Feeling afraid as if something awful might happen: 0 = Not at all Total VIN-7 score (0-4 normal; 5-9 mild; 10-14 moderate; 15-21 severe): 0 Source: Developed by Drs. Ryan Gates, Rosaline Stratton, Morgan Melchor and colleagues, with an educational praveen from [employer]. Review of Systems Const All systems reviewed & are unremarkable except as noted in HPI and below Eyes Reports no additional complaints Card Reports no additional complaints Resp Reports no additional complaints GI Reports no additional complaints Reports no additional complaints Physical exam (Primary Care) Vital Signs: Last Vital Signs Pulse 87 12/27/23 09:57 BP 136/84 12/27/23 09:57 Pulse Ox 95 12/27/23 09:57 Oxygen Delivery Method Room Air 12/27/23 09:57 BMI result Body Mass Index 29.5 Tobacco/Smoking Status: Tobacco use Status Tobacco use date assessed 12/27/23 12/27/23 10:09 Patient Tobacco Use Status Never used Tobacco 12/27/23 10:09 e-Cigarette/Vaping Use Never Used 12/27/23 09:57 PHQ-9: PHQ-9 Score PHQ-9: Total score 2 12/27/23 10:32 Depression Screening Interpretation: Negative Thrive Assessment: Date of Thrive Assessment Date Thrive assessed 12/27/23 12/27/23 10:09 Currently or been in a relationship where the following occur: No concerns reported Const General: no acute distress HENMT Face and sinus: Yes normal facial exam Eyes General: appearance normal, both eyes and all related structures Resp Effort & Inspection: normal respiratory effort Auscultation: clear to auscultation bilaterally Cardio Rhythm: regular rhythm Heart sounds: S1 normal heart sound present and S2 normal heart sound present GI Inspection: Yes normal to inspection Palpation (GI): Soft to palpation Percussion: Yes normal to percussion Auscultation: normal bowel sounds Assessment and Plan Assessment & Plan (1) Hypertension: Code(s): I10 - Essential (primary) hypertension Plan: Current Irbesartan (2) DM type 2 (diabetes mellitus, type 2): Comment: Metformin causes diarrhea Code(s): E11.9 - Type 2 diabetes mellitus without complications Plan: A1c is 5.6. Patient will stop metformin and will continue Jardiance and Ozempic. Follow-up in 3 (3) Hyperlipemia: Comment: diet controlled Code(s): E78.5 - Hyperlipidemia, unspecified Plan: Continue low-cholesterol diet Orders: Orders Complete Blood Count Auto Diff 4 Months E11.9 - Type 2 diabetes mellitus without complications, E78.5 - Hyperlipidemia, unspecified, I10 - Essential (primary) hypertension, R73.9 - Hyperglycemia, unspecified IRON PROFILE 4 Months E11.9 - Type 2 diabetes mellitus without complications, E78.5 - Hyperlipidemia, unspecified, I10 - Essential (primary) hypertension, R73.9 - Hyperglycemia, unspecified Comprehensive [place]. Panel Fast 4 Months E11.9 - Type 2 diabetes mellitus without complications, E78.5 - Hyperlipidemia, unspecified, I10 - Essential (primary) hypertension, R73.9 - Hyperglycemia, unspecified Hemoglobin A1c 4 Months E11.9 - Type 2 diabetes mellitus without complications, E78.5 - Hyperlipidemia, unspecified, I10 - Essential (primary) hypertension, R73.9 - Hyperglycemia, unspecified Lipid Panel 4 Months E11.9 - Type 2 diabetes mellitus without complications, E78.5 - Hyperlipidemia, unspecified, I10 - Essential (primary) hypertension, R73.9 - Hyperglycemia, unspecified Ferritin 4 Months E11.9 - Type 2 diabetes mellitus without complications, E78.5 - Hyperlipidemia, unspecified, I10 - Essential (primary) hypertension, R73.9 - Hyperglycemia, unspecified Microalbumin, Random (w Creat) 4 Months E11.9 - Type 2 diabetes mellitus without complications, E78.5 - Hyperlipidemia, unspecified, I10 - Essential (primary) hypertension, R73.9 - Hyperglycemia, unspecified Coding Level of Care Code Est Pt Level 4 (59213) Complex EM visit Add On [id number] Diagnoses Hypertension I10 DM type 2 (diabetes mellitus, type 2) E11.9 Hyperlipemia E78.5
== END 2023-12-27 10:39 | disposition home or self-care (01) ==
PROVIDERS: PCP Internal Medicine; Visit Provider Internal Medicine
DX: I10 Essential (primary) hypertension (principal); E11.9 Type 2 diabetes mellitus without complications; E78.5 Hyperlipidemia, unspecified
CPT/HCPCS: 99214; G2211

== ENCOUNTER 2024-05-06 08:29 | Outpatient (REF) | payer MEDICARE, SELFPAY ==
[2024-05-06 10:16] LABS: MANUAL DIFF FLAG NO
[2024-05-06 10:20] LABS: Basophils Absolute Auto 0.1 X10*3/uL (0.0-0.2); Basophils Percent Auto 1.2 % (0-2); Eosinophils Absolute Auto 0.1 X10*3/uL (0.0-0.4); Hematocrit 50.1 % (37.0-47.0); Hemoglobin 16.5 g/dl (12.0-16.0); Imm Gran Abs Auto 0.01 X10*3/uL (0.00-0.03); Imm Gran Pct Auto 0.1 % (0.0-0.4); Lymphocytes Absolute Auto 2.1 X10*3/uL (1.2-4.9); Lymphocytes Percent Auto 30.4 % (20-40); Mean Corpuscular HGB Conc 32.9 g/dl (31.0-35.0); Mean Corpuscular Hemoglobin 28.5 pg (27.0-33.0); Mean Corpuscular Volume 86.7 fL (80.0-98.0); Mean Platelet Volume 10.8 fL (9.4-12.3); Monocytes Absolute Auto 0.5 X10*3/uL (0.1-1.2); Monocytes Percent Auto 6.8 % (2-11); Neutrophils Absolute Auto 4.1 x10*3/uL (2.0-8.3); Neutrophils Percent Auto 60.5 % (45-73); Platelet Count 233 X10*3/uL (160-400); Red Blood Count 5.78 X10*6/uL (4.20-5.50); Red Cell Distribution Width 13.5 % (11.0-16.0); White Blood Count 6.8 X10*3/uL (4.8-10.8)
[2024-05-06 10:43] LABS: Alanine Aminotransferase 32 U/L (0-31); Albumin Level 4.5 g/dL (3.5-5.0); Alkaline Phosphatase 82 U/L (39-117); Anion Gap 13 (12-20); Aspartate Amino Transferase 30 U/L (5-31); Bilirubin Total 0.6 mg/dL (0.0-1.0); Blood Urea Nitrogen 20 mg/dL (9-16); Calcium 9.9 mg/dL (8.4-10.2); Carbon Dioxide 23 mmol/L (22-29); Chloride 107 mmol/L (96-108); Cholesterol 184 mg/dL (<200); Estimated Glomerular Filt Rate > 60; Glucose Fasting 104 mg/dL (60-99); HDL Cholesterol 44 mg/dL (>40); Iron 64 mcg/dL (30-160); LDL Cholesterol Calculated 108 mg/dL (<100); Percent Iron Saturation 21 % (15-50); Potassium 4.2 mmol/L (3.3-5.1); Sodium 139 mmol/L (135-145); Total Iron Binding Capacity 312 mcg/dL (228-428); Total Protein 8.4 g/dL (6.5-8.0); Triglycerides 161 mg/dL (<150); Unsaturated Iron Binding 248 ug/dL
[2024-05-06 10:48] LABS: Ferritin 96 ng/mL (10-250)
[2024-05-06 11:34] LABS: Estimated Average Glucose 120 mg/dL; Hemoglobin A1C 166.4929 umol/L; Hemoglobin A1c % 5.8 % (<6.0); Total Hemoglobin (HGBA1C) 4148.3913 umol/L
[2024-05-06 11:42] LABS: Creatinine Urine 99.28 mg/dL; Microalbum/Creatinine Ratio Ur 19.1 ug/mg cr (<30)
== END 2024-05-06 08:30 | disposition home or self-care (01) ==
LOC: HO.HMGCLDS 08:29
PROVIDERS: PCP Internal Medicine; Visit Provider Internal Medicine
DX: E78.5 Hyperlipidemia, unspecified (principal); I10 Essential (primary) hypertension; E11.65 Type 2 diabetes mellitus with hyperglycemia
CPT/HCPCS: 36415; 80053; 80061; 82043; 82570; 82728; 83036; 83540; 85025

== ENCOUNTER 2024-05-07 12:51 | Outpatient (AMB) | payer MEDICARE, SELFPAY ==
[2024-05-07 13:09] VITALS: BP 120/74; PULSE 90; O2SAT 95; BMI 29.2
--- NOTE | 2024-05-07 13:09 | MHC.PC.OV ---
Vital Signs 05/07/24 13:09 Height 5 ft 8 in Weight 192 lb BMI 29.2 BP 120/74 Blood Pressure Location Lt brachial Position Sitting Pulse 90 Pulse Source Pulse Oximeter Pulse Oximetry (%) 95 Oxygen Delivery Method Room Air Intake Visit Reasons: Annual PE Intake Note: Pt is here today for PE. Allergies No Known Allergies Allergy (Verified 05/07/24 13:11) Medication List - Last Reconciled 05/07/24 by Nafisa Witt MD blood sugar diagnostic (Face.comTouch Ultra Test strips) 1 qd blood-glucose meter (Face.comTouch Ultra2 Meter) As directed empagliflozin (Jardiance) 25 mg PO DAILY irbesartan 300 mg PO DAILY lancets 1 QD lancets (Face.comTouch Delica Plus Lancet) Test blood sugar once a day semaglutide (Ozempic) 1 mg (0.75 mL) subcut QWEEK Tobacco use date assessed: 05/07/24 Fall risk assessment: 1 Fall in past year Last assessed Fall Risk: 05/07/24 Dental Screening Dental Screen Date: 05/07/24 Did you have a dental visit in the last 12 months?: Yes Did you have a dental problem in the last 6 months where you did not have access to dental care?: No Was dental information given to patient?: Patient has dentist HPI Annual PE HPI Details Pt presents for PE. Pt c/o insomnia on and off. PFSH Medical History Diarrhea DM type 2 (diabetes mellitus, type 2) Hyperglycemia Annual physical exam Hypertension Surgical History History of colonoscopy H/O neck surgery Previous back surgery History of right knee joint replacement Family History Father Cancer Mother COPD (chronic obstructive pulmonary disease) Heart disease Social History Household Members Other:: walking, , 2 adults, 5 grandsons, Housing: Apartment Alcohol intake: current Alcohol intake frequency: a few times a month Patient Tobacco Use Status: Never used Tobacco e-Cigarette/Vaping Use: Never Used Second Hand Smoke Exposure: No service: No Current occupational status: retired Cognitive needs: No Hearing needs: No Vision needs: Yes Questionnaire Thrive Questionnaire Date Thrive assessed: 12/27/23 I am a: Patient What is your living situation today?: I have a steady place to live Within the past 12 months, did the food you bought not last and you didn't have the money to get more?: Never true Within the past 12 months, did you worry whether your food would run out before you got money to buy more?: Never true Do you have trouble paying for medicines?: No Do you have trouble getting transportation to medical appointments?: No Do you have trouble paying your heating and electricity bill?: No Do you have trouble taking care of your child, family member or friend?: No Do you have trouble with day-to-day activities such as bathing, preparing meals, shopping, managing finances, etc.?: No Are you currently unemployed and looking for a job?: No Are you interested in more education?: No Please select the resources that you would like help with: None Currently or been in a relationship where the following occur: No concerns reported THRIVE Score: 0 VIN-7 AMB Questionnaire VIN-7 Date VIN - 7 assessed: 12/27/23 Source: Developed by Drs. Ryan Gates, Rosaline Stratton, Morgan Melchor and colleagues, with an educational praveen from [employer]. Review of Systems Const All systems reviewed & are unremarkable except as noted in HPI and below Eyes Reports no additional complaints ENT Reports no additional complaints Card Reports no additional complaints Resp Reports no additional complaints GI Reports no additional complaints Reports no additional complaints Physical exam (Primary Care) Vital Signs: Last Vital Signs Pulse 90 05/07/24 13:09 BP 120/74 05/07/24 13:09 Pulse Ox 95 05/07/24 13:09 Oxygen Delivery Method Room Air 05/07/24 13:09 BMI result Body Mass Index 29.2 Tobacco/Smoking Status: Tobacco use Status Tobacco use date assessed 05/07/24 05/07/24 13:14 Patient Tobacco Use Status Never used Tobacco 05/07/24 13:14 e-Cigarette/Vaping Use Never Used 05/07/24 13:14 Thrive Assessment: Date of Thrive Assessment Date Thrive assessed 12/27/23 05/07/24 13:14 Currently or been in a relationship where the following occur: No concerns reported Const General: no acute distress HENMT Head: Yes normal to inspection General nose exam: Normal external nose present Face and sinus: Yes normal facial exam Throat: Yes posterior oropharynx normal Eyes General: appearance normal, both eyes and all related structures Neck Neck: Yes no lymphadenopathy and Yes supple Resp Effort & Inspection: normal respiratory effort Auscultation: clear to auscultation bilaterally Cardio Rhythm: regular rhythm Heart sounds: S1 normal heart sound present and S2 normal heart sound present GI Inspection: Yes normal to inspection Palpation (GI): Soft to palpation Percussion: Yes normal to percussion Auscultation: normal bowel sounds Immunizations pneumoc 20-miriam conj-dip cr(PF) 0.5 mL IM syringe Performing Provider: Nafisa Witt MD Performing Location: [facility] [place] [facility] Administered by: KOTA Garay on 05/07/24 13:50 Dose Route Admin Location Dispensed Lot Number Expiration Date NDC Veneer Drier 0.5 mL IM Right Deltoid 0.5 mL [id number] 10/19/25 [employer] VIS Given Date VIS Provided VIS Publication Date 05/07/24 Single Vaccine 21 Eligibility Eligibility Date Funding Source Not [facility] Eligible 05/07/24 Private Coding Level of Care Code Est Pt Prev Care >65y(16768) Diagnoses Annual physical exam Z00.00 DM type 2 (diabetes mellitus, type 2) E11.9 Hx of screening mammography Z92.89 Hypertension I10 Assessment & Plan Assessment & Plan (1) Annual physical exam: Code(s): Z00.00 - Encounter for general adult medical examination without abnormal findings Category: Medical Plan: well balanced diet, regular exercise discussed with the patient. Patient will be referred for mammogram and she declined colonoscopy (2) DM type 2 (diabetes mellitus, type 2): Comment: Metformin causes diarrhea Code(s): E11.9 - Type 2 diabetes mellitus without complications Category: Medical Plan: A1c is 5.8, ADA diet regular exercise weight loss discussed with the patient increase Ozempic to 2 mg and continue Jardiance follow-up in 3 months with a fasting labs before (3) Hx of screening mammography: Comment: 07/14 [facility] [place] Code(s): Z92.89 - Personal history of other medical treatment Category: Medical Plan: Schedule mammogram (4) Hypertension: Code(s): I10 - Essential (primary) hypertension Category: Medical Plan: Continue Irbesartan Orders: Orders Reticulocyte Count 3 Months E11.9 - Type 2 diabetes mellitus without complications, Z00.00 - Encounter for general adult medical examination without abnormal findings, Z92.89 - Personal history of other medical treatment Pneumococcal 20 Immunization Today Z23 - Encounter for immunization Erythropoietin (EPO) 3 Months D75.1 - Secondary polycythemia Complete Blood Count Auto Diff 3 Months E11.9 - Type 2 diabetes mellitus without complications, Z00.00 - Encounter for general adult medical examination without abnormal findings, Z92.89 - Personal history of other medical treatment IRON PROFILE 3 Months E11.9 - Type 2 diabetes mellitus without complications, Z00.00 - Encounter for general adult medical examination without abnormal findings, Z92.89 - Personal history of other medical treatment Comprehensive [place]. Panel Fast 3 Months E11.9 - Type 2 diabetes mellitus without complications, Z00.00 - Encounter for general adult medical examination without abnormal findings, Z92.89 - Personal history of other medical treatment Hemoglobin A1c 3 Months E11.9 - Type 2 diabetes mellitus without complications, Z00.00 - Encounter for general adult medical examination without abnormal findings, Z92.89 - Personal history of other medical treatment Medications: New Ozempic (semaglutide) 2 mg (0.75 mL) subcut QWEEK 3 mL 3RF NS
== END 2024-05-07 13:54 | disposition home or self-care (01) ==
PROVIDERS: PCP Internal Medicine; Visit Provider Internal Medicine
DX: Z00.00 Encounter for general adult medical examination without abnormal findings (principal); E11.9 Type 2 diabetes mellitus without complications; Z92.89 Personal history of other medical treatment; I10 Essential (primary) hypertension; Z23 Encounter for immunization

== ENCOUNTER → 2024-05-07 12:51 | Outpatient (BNVA) | payer MEDICARE, SELFPAY | PROVIDERS: PCP Internal Medicine; Visit Provider Internal Medicine | DX: Z00.00 Encounter for general adult medical examination without abnormal findings (principal); E11.9 Type 2 diabetes mellitus without complications; I10 Essential (primary) hypertension; D75.1 Secondary polycythemia; Z23 Encounter for immunization; Z92.89 Personal history of other medical treatment | CPT/HCPCS: 90471; 90677; 99397 ==

== ENCOUNTER 2024-08-05 08:32 | Outpatient (REF) | payer MEDICARE, SELFPAY ==
[2024-08-05 10:23] LABS: MANUAL DIFF FLAG NO
[2024-08-05 10:33] LABS: Basophils Absolute Auto 0.1 X10*3/uL (0.0-0.2); Basophils Percent Auto 0.9 % (0-2); Eosinophils Absolute Auto 0.1 X10*3/uL (0.0-0.4); Eosinophils Percent Auto 0.8 % (0-4); Hematocrit 50.1 % (37.0-47.0); Hemoglobin 16.5 g/dl (12.0-16.0); Imm Gran Abs Auto 0.03 X10*3/uL (0.00-0.03); Imm Gran Pct Auto 0.4 % (0.0-0.4); Lymphocytes Absolute Auto 1.9 X10*3/uL (1.2-4.9); Lymphocytes Percent Auto 25.2 % (20-40); Mean Corpuscular HGB Conc 32.9 g/dl (31.0-35.0); Mean Corpuscular Hemoglobin 28.7 pg (27.0-33.0); Mean Corpuscular Volume 87.3 fL (80.0-98.0); Mean Platelet Volume 10.7 fL (9.4-12.3); Monocytes Absolute Auto 0.4 X10*3/uL (0.1-1.2); Monocytes Percent Auto 5.7 % (2-11); Neutrophils Absolute Auto 5.2 x10*3/uL (2.0-8.3); Platelet Count 242 X10*3/uL (160-400); Red Blood Count 5.74 X10*6/uL (4.20-5.50); Red Cell Distribution Width 14.1 % (11.0-16.0); White Blood Count 7.7 X10*3/uL (4.8-10.8)
[2024-08-05 10:42] LABS: Estimated Average Glucose 114 mg/dL; Hemoglobin A1C 156.7794 umol/L; Hemoglobin A1c % 5.6 % (<6.0)
[2024-08-05 12:08] LABS: Alanine Aminotransferase 40 U/L (0-31); Albumin Level 4.4 g/dL (3.5-5.0); Alkaline Phosphatase 78 U/L (39-117); Anion Gap 12 (12-20); Aspartate Amino Transferase 31 U/L (5-31); Bilirubin Total 0.7 mg/dL (0.0-1.0); Blood Urea Nitrogen 18 mg/dL (9-16); Calcium 9.7 mg/dL (8.4-10.2); Carbon Dioxide 22 mmol/L (22-29); Chloride 109 mmol/L (96-108); Estimated Glomerular Filt Rate > 60; Glucose Fasting 103 mg/dL (60-99); Iron 77 mcg/dL (30-160); Percent Iron Saturation 26 % (15-50); Potassium 4.3 mmol/L (3.3-5.1); Sodium 139 mmol/L (135-145); Total Iron Binding Capacity 293 mcg/dL (228-428); Total Protein 8.6 g/dL (6.5-8.0); Unsaturated Iron Binding 216 ug/dL
[2024-08-06 20:03] LABS: Erythropoietin (EPO) 12.4 mIU/mL (2.6-18.5)
== END 2024-08-05 08:33 | disposition home or self-care (01) ==
LOC: HO.HMGCLDS 08:32
PROVIDERS: PCP Internal Medicine; Visit Provider Internal Medicine
DX: D75.1 Secondary polycythemia (principal); E11.9 Type 2 diabetes mellitus without complications; Z00.00 Encounter for general adult medical examination without abnormal findings; Z92.89 Personal history of other medical treatment
CPT/HCPCS: 36415; 80053; 82668; 83036; 83540; 85025

== ENCOUNTER 2024-08-06 10:41 | Outpatient (AMB) | payer MEDICARE, SELFPAY ==
[2024-08-06 10:50] VITALS: BP 106/68; PULSE 86; RESP 18; TEMP 36.6; O2SAT 96; BMI 29.2
--- NOTE | 2024-08-06 10:50 | MHC.PC.OV ---
Vital Signs 08/06/24 10:50 Height 5 ft 8 in Weight 192 lb BMI 29.2 BP 106/68 Blood Pressure Location Lt brachial Position Sitting Respiration 18 Pulse 86 Pulse Source Pulse Oximeter Temp 97.8 F Temp Source Oral Pulse Oximetry (%) 96 Oxygen Delivery Method Room Air Intake Visit Reasons: 3 months f/up Intake Note: Pt is here today for 3 months follow up visit. Allergies No Known Allergies Allergy (Verified 08/06/24 10:52) Medication List - Last Reconciled 08/06/24 by Nafisa Witt MD blood sugar diagnostic (OneTouch Ultra Test strips) 1 qd blood-glucose meter (Mobile Security SoftwareTouch Ultra2 Meter) As directed empagliflozin (Jardiance) 25 mg PO DAILY irbesartan 300 mg PO DAILY lancets 1 QD lancets (Mobile Security SoftwareTouch Delica Plus Lancet) Test blood sugar once a day Ozempic (semaglutide) 2 mg (0.75 mL) subcut QWEEK NS Tobacco use date assessed: 08/06/24 Fall risk assessment: No Falls in past year Last assessed Fall Risk: 08/06/24 Dental Screening Dental Screen Date: 08/06/24 Did you have a dental visit in the last 12 months?: Yes Did you have a dental problem in the last 6 months where you did not have access to dental care?: No Was dental information given to patient?: Patient has dentist HPI 3 months f/up HPI Details Patient presents for the follow-up of hypertension type 2 diabetes controlled on current medications. She complains of 3 weeks of left knee pain worse when walking or trying to extend her leg. She denies any injury or joint swelling. [facility] Medical History Diarrhea DM type 2 (diabetes mellitus, type 2) Hyperglycemia Annual physical exam Hypertension Surgical History History of colonoscopy H/O neck surgery Previous back surgery History of right knee joint replacement Family History Father Cancer Mother COPD (chronic obstructive pulmonary disease) Heart disease Social History Household Members Other:: walking, , 2 adults, 5 grandsons, Housing: Apartment Alcohol intake: current Alcohol intake frequency: a few times a month Patient Tobacco Use Status: Never used Tobacco e-Cigarette/Vaping Use: Never Used Second Hand Smoke Exposure: No service: No Current occupational status: retired Cognitive needs: No Hearing needs: No Vision needs: Yes Questionnaire PHQ-9 Over the last 2 weeks, how often have you been bothered by any of the following problems? 1. Little interest or pleasure in doing things: not at all 2. Feeling down, depressed, or hopeless: not at all 3. Trouble falling or staying asleep, or sleeping too much: not at all 4. Feeling tired or having little energy: not at all 5. Poor appetite or overeating: not at all 6. Feeling bad about yourself - or that you are a failure or have let yourself or your family down: not at all 7. Trouble concentrating on things, such as reading the newspaper or watching television: not at all 8. Moving or speaking so slowly that other people could have noticed. Or the opposite - being so fidgety or restless that you have been moving around a lot more than usual: not at all 9. Thoughts that you would be better off or of hurting yourself in some way: not at all Total score: 0 Depression Screening Interpretation: Negative Depression Screening Done: Yes 15104 - PHQ-9 Billing: Yes Source: Developed by Drs. Ryan Gates, Rosaline Stratton, Morgan Melchor and colleagues, with an educational praveen from [employer]. Thrive Questionnaire Date Thrive assessed: 08/06/24 I am a: Patient What is your living situation today?: I have a steady place to live Within the past 12 months, did the food you bought not last and you didn't have the money to get more?: Never true Within the past 12 months, did you worry whether your food would run out before you got money to buy more?: Never true Do you have trouble paying for medicines?: No Do you have trouble getting transportation to medical appointments?: No Do you have trouble paying your heating and electricity bill?: No Do you have trouble taking care of your child, family member or friend?: No Do you have trouble with day-to-day activities such as bathing, preparing meals, shopping, managing finances, etc.?: No Are you currently unemployed and looking for a job?: No Are you interested in more education?: No Please select the resources that you would like help with: None Currently or been in a relationship where the following occur: No concerns reported THRIVE Score: 0 AUDIT C Alcohol Use Questionnaire (AUDIT-C) 1. How often do you have a drink containing alcohol?: Monthly or less 2. How many drinks containing alcohol do you have on a typical day when you are drinking?: 1 or 2 3. How often do you have six or more drinks on one occasion?: Never Total Score: 1 VIN-7 AMB Questionnaire VIN-7 Date VIN - 7 assessed: 08/06/24 Feeling nervous, anxious, or on edge: 0 = Not at all Not being able to stop or control worryin = Not at all Worrying too much about different things: 0 = Not at all Trouble relaxin = Several days Being so restless that it is hard to sit still: 0 = Not at all Becoming easily annoyed or irritable: 0 = Not at all Feeling afraid as if something awful might happen: 0 = Not at all Total VIN-7 score (0-4 normal; 5-9 mild; 10-14 moderate; 15-21 severe): 1 Source: Developed by Drs. Ryan Gates, Rosaline Stratton, Morgan Melchor and colleagues, with an educational praveen from [employer]. VIN-7 Assessment Billing VIN-7 Assessment Tool: VIN-7 Assessment 59302 Review of Systems Const All systems reviewed & are unremarkable except as noted in HPI and below Eyes Reports no additional complaints ENT Reports no additional complaints Card Reports no additional complaints Resp Reports no additional complaints GI Reports no additional complaints Reports no additional complaints Physical exam (Primary Care) Vital Signs: Last Vital Signs Temp 97.8 F 08/06/24 10:50 Pulse 86 08/06/24 10:50 Resp 18 08/06/24 10:50 BP 106/68 08/06/24 10:50 Pulse Ox 96 08/06/24 10:50 Oxygen Delivery Method Room Air 08/06/24 10:50 BMI result Body Mass Index 29.2 Tobacco/Smoking Status: Tobacco use Status Tobacco use date assessed 08/06/24 08/06/24 10:57 Patient Tobacco Use Status Never used Tobacco 08/06/24 10:57 e-Cigarette/Vaping Use Never Used 08/06/24 10:57 PHQ-9: PHQ-9 Score PHQ-9: Total score 0 08/06/24 10:59 Depression Screening Interpretation: Negative Thrive Assessment: Date of Thrive Assessment Date Thrive assessed 08/06/24 08/06/24 10:57 Currently or been in a relationship where the following occur: No concerns reported Const General: no acute distress HENMT Head: Yes normal to inspection Eyes General: appearance normal, both eyes and all related structures Neck Neck: Yes supple Resp Effort & Inspection: normal respiratory effort Auscultation: clear to auscultation bilaterally Cardio Rhythm: regular rhythm Heart sounds: S1 normal heart sound present and S2 normal heart sound present Extrem Other: Slightly decreased range of motion and crepitus of left knee , no soft tissue swelling erythema warmth Coding Level of Care Code Est Pt Level 4 (72293) Diagnoses Knee pain, left M25.562 Hypertension I10 DM type 2 (diabetes mellitus, type 2) E11.9 Additional Codes VIN-7 Assessment Billing - VIN-7 Assessment Tool: VIN-7 Assessment 03487 ([id number]) PHQ-9 - 19950 - PHQ-9 Billing: Yes ([id number]) Assessment & Plan Assessment & Plan (1) Knee pain, left: Code(s): M25.562 - Pain in left knee Category: Medical Plan: Obtain x-ray and referred to physical therapy (2) Hypertension: Code(s): I10 - Essential (primary) hypertension Category: Medical Plan: Continue Irbesartan (3) DM type 2 (diabetes mellitus, type 2): Comment: Metformin causes diarrhea Code(s): E11.9 - Type 2 diabetes mellitus without complications Category: Medical Plan: A1c is 5.8, continue ADA diet Jardiance and Ozempic follow-up in 4 months with a fasting labs before Orders: Orders PT Evaluation and Treatment Today M25.562 - Pain in left knee Comprehensive [place]. Panel Fast 4 Months E11.9 - Type 2 diabetes mellitus without complications, I10 - Essential (primary) hypertension Lipid Panel 4 Months E11.9 - Type 2 diabetes mellitus without complications, I10 - Essential (primary) hypertension Complete Blood Count Auto Diff 4 Months E11.9 - Type 2 diabetes mellitus without complications, I10 - Essential (primary) hypertension Hemoglobin A1c 4 Months E11.9 - Type 2 diabetes mellitus without complications, I10 - Essential (primary) hypertension Microalbumin, Random (w Creat) 4 Months E11.9 - Type 2 diabetes mellitus without complications, I10 - Essential (primary) hypertension Medications: Discontinued semaglutide (Ozempic) Discontinued Reason: Doctor's Order 1 mg (0.75 mL) subcut QWEEK 9 mL 2RF
== END 2024-08-06 11:22 | disposition home or self-care (01) ==
LOC: HO.HMCC 10:42
PROVIDERS: PCP Internal Medicine; Visit Provider Internal Medicine
DX: M25.562 Pain in left knee (principal); I10 Essential (primary) hypertension; E11.9 Type 2 diabetes mellitus without complications

== ENCOUNTER 2024-08-06 10:41 | Outpatient (REF) | payer MEDICARE, SELFPAY ==
--- NOTE | ~2024-08-06 | XR_ITS ---
EXAMINATION: XR KNEE, LEFT CLINICAL INFORMATION: M25.562 - Pain in left knee COMPARISON: None available. TECHNIQUE: Two views of the left knee. FINDINGS: Articular surface sclerosis involving the femoral condyles tibial plateau and patellofemoral more conspicuous in the lateral compartment. There is joint space narrowing involving mostly the lateral compartment. Multiple marginal osteophyte formations, femoral condyles, posterior patella and tibial plateaus. No acute cortical disruption or malalignment. No lytic or blastic lesions. No suprapatellar bursa joint effusion. XR/XR knee LT 2V IMPRESSION: Tricompartmental osteoarthrosis, moderate to severe, involving mostly the lateral compartment. Electronically signed by: Hector Angulo MD 08/07/2024 08:01 AM EDT
== END 2024-08-06 10:42 | disposition home or self-care (01) ==
LOC: HO.HMGCX 10:41
PROVIDERS: PCP Internal Medicine; Visit Provider Internal Medicine
DX: M25.562 Pain in left knee (principal); I10 Essential (primary) hypertension; E11.9 Type 2 diabetes mellitus without complications
CPT/HCPCS: 73560; 96127; 99212

== ENCOUNTER → 2024-08-06 11:17 | Outpatient (BNV) | payer MEDICARE, SELFPAY | PROVIDERS: PCP Internal Medicine; Visit Provider Radiology Diagnostic Radiology | DX: M25.562 Pain in left knee (principal); M17.12 Unilateral primary osteoarthritis, left knee | CPT/HCPCS: 73560 ==

== ENCOUNTER → 2024-08-12 09:20 | Outpatient (BNVA) | payer MEDICARE, SELFPAY | PROVIDERS: PCP Internal Medicine; Visit Provider Internal Medicine | DX: J06.9 Acute upper respiratory infection, unspecified (principal); E11.9 Type 2 diabetes mellitus without complications | CPT/HCPCS: 87880; 99212 ==

== ENCOUNTER 2024-08-12 14:20 | Outpatient (AMB) | payer MEDICARE, SELFPAY ==
[2024-08-12 14:24] VITALS: BP 132/80; PULSE 80; RESP 20; TEMP 36.7; O2SAT 97; BMI 29.8
--- NOTE | 2024-08-12 14:24 | MHC.PC.OV ---
Vital Signs 08/12/24 14:24 Height 5 ft 8 in Weight 196 lb BMI 29.8 BP 132/80 Blood Pressure Location Lt brachial Position Sitting Respiration 20 Pulse 80 Pulse Source Pulse Oximeter Temp 98.0 F Temp Source Oral Pulse Oximetry (%) 97 Oxygen Delivery Method Room Air Intake Visit Reasons: ? pink eye, sore throat Intake Note: Pt is here today for a sick visit. Pt c/o watery, red and itchy L eye. Pt also c/o sore throat since last Monday. Allergies No Known Allergies Allergy (Verified 08/12/24 14:34) Tobacco use date assessed: 08/12/24 Dental Screening Dental Screen Date: 08/06/24 HPI ? pink eye, sore throat HPI Details Patient complains of 3 days of sore throat and both eyes erythema itching and white discharge. Patient denies fever chills cough change in the vision. Hypertension type 2 diabetes are controlled on current medications [facility] Medical History (Updated 08/12/24 @ 15:10 by Nafisa Witt MD) Diarrhea DM type 2 (diabetes mellitus, type 2) Hyperglycemia Annual physical exam Hypertension Surgical History History of colonoscopy H/O neck surgery Previous back surgery History of right knee joint replacement Family History Father Cancer Mother COPD (chronic obstructive pulmonary disease) Heart disease Social History Household Members Other:: walking, , 2 adults, 5 grandsons, Housing: Apartment Alcohol intake: current Alcohol intake frequency: a few times a month Patient Tobacco Use Status: Never used Tobacco e-Cigarette/Vaping Use: Never Used Second Hand Smoke Exposure: No service: No Current occupational status: retired Cognitive needs: No Hearing needs: No Vision needs: Yes Questionnaire Thrive Questionnaire Date Thrive assessed: 08/02/24 I am a: Patient What is your living situation today?: I have a steady place to live Within the past 12 months, did the food you bought not last and you didn't have the money to get more?: Never true Within the past 12 months, did you worry whether your food would run out before you got money to buy more?: Never true Do you have trouble paying for medicines?: No Do you have trouble getting transportation to medical appointments?: No Do you have trouble paying your heating and electricity bill?: No Do you have trouble taking care of your child, family member or friend?: No Do you have trouble with day-to-day activities such as bathing, preparing meals, shopping, managing finances, etc.?: No Are you currently unemployed and looking for a job?: No Are you interested in more education?: No Please select the resources that you would like help with: None Currently or been in a relationship where the following occur: No concerns reported THRIVE Score: 0 VIN-7 AMB Questionnaire VIN-7 Date VIN - 7 assessed: 08/06/24 Source: Developed by Drs. Ryan Gates, Rosaline Stratton, Morgan Melchor and colleagues, with an educational praveen from [employer]. Review of Systems Const All systems reviewed & are unremarkable except as noted in HPI and below Eyes Reports no additional complaints ENT Reports no additional complaints Card Reports no additional complaints Resp Reports no additional complaints GI Reports no additional complaints Reports no additional complaints Physical exam (Primary Care) Vital Signs: Last Vital Signs Temp 98.0 F 08/12/24 14:24 Pulse 80 08/12/24 14:24 Resp 20 08/12/24 14:24 BP 132/80 08/12/24 14:24 Pulse Ox 97 08/12/24 14:24 Oxygen Delivery Method Room Air 08/12/24 14:24 BMI result Body Mass Index 29.8 Tobacco/Smoking Status: Tobacco use Status Tobacco use date assessed 08/12/24 08/12/24 14:41 Patient Tobacco Use Status Never used Tobacco 08/12/24 14:24 e-Cigarette/Vaping Use Never Used 08/12/24 14:24 Thrive Assessment: Date of Thrive Assessment Date Thrive assessed 08/02/24 08/12/24 14:24 Currently or been in a relationship where the following occur: No concerns reported Const General: no acute distress HENMT Head: Yes normal to inspection Ears: TM's normal bilaterally Face and sinus: Yes normal facial exam Throat: Yes posterior oropharynx abnormal and Yes postnasal drainage Eyes Conjunctivae: conjunctival abnormal (Slight erythema no discharge bilateral) Pupils: Equal, round and reactive pupils present EOM: EOMs intact bilaterally Neck Neck: Yes no lymphadenopathy and Yes supple Resp Effort & Inspection: normal respiratory effort Auscultation: clear to auscultation bilaterally Cardio Rhythm: regular rhythm Heart sounds: S1 normal heart sound present and S2 normal heart sound present Neuro Cranial nerves: Yes Equal, round and reactive pupils present Results AMB Rapid Strep AMB Rapid Strep Negative Last Edit by KOTA Garay on 08/12/24 14:51 Results Reviewed Results Reviewed: Laboratory Last Values Strep Scn [facility] Negative 08/12/24 14:51 Coding Level of Care Code Est Pt Level 3 (22448) Diagnoses URI (upper respiratory infection) J06.9 DM type 2 (diabetes mellitus, type 2) E11.9 Assessment & Plan Assessment & Plan (1) URI (upper respiratory infection): Code(s): J06.9 - Acute upper respiratory infection, unspecified Category: Medical Plan: SUPPORTIVE CARE DISCUSSED WITH THE PATIENT (2) DM type 2 (diabetes mellitus, type 2): Comment: Metformin causes diarrhea Code(s): E11.9 - Type 2 diabetes mellitus without complications Category: Medical Plan: Continue current medications Orders: Orders AMB Rapid Strep Screen Today Z13.9 - Encounter for screening, unspecified
== END 2024-08-12 15:12 | disposition home or self-care (01) ==
PROVIDERS: PCP Internal Medicine; Visit Provider Internal Medicine
DX: J06.9 Acute upper respiratory infection, unspecified (principal); E11.9 Type 2 diabetes mellitus without complications; Z13.9 Encounter for screening, unspecified

== ENCOUNTER 2024-08-15 07:47 | Outpatient (REF) | payer MEDICARE, SELFPAY | END 2024-08-15 07:48 | disposition home or self-care (01) | LOC: HO.MAMMO 07:47 | PROVIDERS: PCP Internal Medicine; Visit Provider Internal Medicine | DX: Z12.31 Encounter for screening mammogram for malignant neoplasm of breast (principal) | CPT/HCPCS: 77063; 77067 ==

== ENCOUNTER → 2024-08-15 08:00 | Outpatient (BNV) | payer MEDICARE, SELFPAY | PROVIDERS: PCP Internal Medicine; Visit Provider Internal Medicine | DX: Z12.31 Encounter for screening mammogram for malignant neoplasm of breast (principal) | CPT/HCPCS: 77063; 77067 ==

== ENCOUNTER 2024-10-07 08:41 | Outpatient (REF) | payer MEDICARE, SELFPAY ==
--- NOTE | ~2024-10-07 | XR_ITS ---
EXAMINATION: XR KNEE 1-2 VIEWS LEFT HISTORY: M25.562 - Pain in left knee COMPARISON: Comparison is made with the prior examination dated 08/06/2024. FINDINGS: Standing AP views of both knees and an additional sunrise patellar view of the left knee are submitted. Osseous mineralization is normal. There is severe tricompartmental osteoarthritis with joint space narrowing and osteophyte formation. Evaluation for a joint effusion is limited by lack of a lateral view. The patient is status post right total knee arthroplasty. XR/XR knee LT 2V IMPRESSION: Severe tricompartmental osteoarthritis. Electronically signed by: Ryan Aldridge MD 10/07/2024 10:16 AM EDT
== END 2024-10-07 08:42 | disposition home or self-care (01) ==
LOC: HO.HOSX 08:41
PROVIDERS: Visit Provider Physician Assistant
DX: M25.562 Pain in left knee (principal); M17.12 Unilateral primary osteoarthritis, left knee
CPT/HCPCS: 20610; 73560; 99202; J1010; J2003

== ENCOUNTER 2024-10-07 09:31 | Outpatient (AMB) | payer MEDICARE, SELFPAY ==
--- NOTE | 2024-10-07 09:39 | MHC.OFFVIS ---
Vital Signs 10/07/24 09:48 Height 5 ft 8 in Weight 196 lb BMI 29.8 Intake Visit Reasons: [employer]-Left knee pain OA Intake Note: Keren is a 69 yr old female who presents today for a new patient evaluation for her left knee O.A pain. States pain started 2 months ago and has worsen. Hx of a fall about a year ago. Hx of right TKA 2011 DR laila Pierre. No injury she can recall. Her pain is triggered with walking up/down stairs and from sit to stand position. Patient has tried in the past voltaren gel, Ibuprofen with mild improvement Allergies No Known Allergies Allergy (Verified 10/07/24 09:47) Medication List - Last Reconciled 10/07/24 by Indigo Cantrell PA-C blood sugar diagnostic ([employer] Ultra Test strips) 1 qd blood-glucose meter ([employer]Touch Ultra2 Meter) As directed empagliflozin (Jardiance) 25 mg PO DAILY irbesartan 300 mg PO DAILY lancets 1 QD lancets (OneTouch Delica Plus Lancet) Test blood sugar once a day Ozempic (semaglutide) 2 mg (0.75 mL) subcut QWEEK NS HPI HPI [employer]-Left knee pain OA: Details: 69 yo female presents to the office today for left knee pain. She states she had a bad flare up about 2 months ago , she was seen by her PCP who referred her to our office for eval. She has difficulty with walking and stairs. The pain has let up a bit. She was taking Ibuprofen and voltaren gel which was helpful. She has not had any prior treatment to the left knee. She is sp RT TKA with Dr Leahy 2010. [facility] Medical History (Updated 10/07/24 @ 10:02 by Indigo Cantrell PA-C) Diarrhea DM type 2 (diabetes mellitus, type 2) Hyperglycemia Annual physical exam Hypertension Surgical History History of colonoscopy H/O neck surgery Previous back surgery History of right knee joint replacement Family History Father Cancer Mother COPD (chronic obstructive pulmonary disease) Heart disease Social History Household Members Other:: walking, , 2 adults, 5 grandsons, Housing: Apartment Alcohol intake: current Alcohol intake frequency: a few times a month Patient Tobacco Use Status: Never used Tobacco e-Cigarette/Vaping Use: Never Used Second Hand Smoke Exposure: No service: No Current occupational status: retired Cognitive needs: No Hearing needs: No Vision needs: Yes Review of Systems Const All systems reviewed & are unremarkable except as noted in HPI and below Physical Exam Vital Signs: BMI result Body Mass Index 29.8 Const General: cooperative and no acute distress Orientation/consciousness: patient oriented x3 Resp Effort & Inspection: normal respiratory effort and able to speak in complete sentences Cardio Peripheral pulses: Peripheral pulses 2+ throughout Neuro General: patient oriented x3 Extrem Other: Left knee skin is intact. No erythema or joint effusion present. She does have slight valgus alignment. Full range of motion with crepitus along the patella. Calf supple and nontender neurovascularly intact. Office Procedures AMB Joint Injection/Aspiration Joint Injection/Aspiration Primary Site: left knee Prep: site was prepped using aseptic technique, ethochloride spray was applied and injection warnings given Injected: 40 mg of, DepoMedrol, with 8 mL of, 1% plain lidocaine and in the joint Approach Used: anterolateral Procedure: The patient tolerated the procedure well and there was some relief with the local anesthesia Coding 26930 - Glenohumeral/Tronchanteric Bursa/Intraarticular Procedure code (CPT) selection complete Results Reviewed Results Reviewed: X-rays of the left knee obtained in the office today and reviewed by me do show moderate to severe osteoarthritis Assessment & Plan Assessment & Plan (1) Osteoarthritis of left knee: Code(s): M17.12 - Unilateral primary osteoarthritis, left knee Category: Medical Qualifiers: Osteoarthritis type: primary Qualified Code(s): M17.12 - Unilateral primary osteoarthritis, left knee Plan: We discussed options today which include physical therapy to work on conditioning and strengthening exercises. An order was placed for this and she was given a card to reach out and make an appointment. We also discussed the benefits of steroid injections which we did proceed with today. Patient tolerated procedure well. She will monitor her blood glucose levels over the next 72 hours as the injection can have an effect on her sugar levels. We also discussed the benefits of viscosupplementation. She is interested in this and we will submit prior authorization today. Once obtained we will contact her to discuss this she would like to proceed. Orders: Orders PT Evaluation and Treatment Today M17.12 - Unilateral primary osteoarthritis, left knee XR knee LT 2V Today M25.562 - Pain in left knee Coding Level of Care Code New Pt Level 3 (34480) Complex EM visit Add On G2211 Diagnoses Primary osteoarthritis of left knee M17.12 Osteoarthritis type: primary CPT Codes Coding - Joint 7: 66743 - Glenohumeral/Tronchanteric Bursa/Intraarticular ([id number])
[2024-10-07 09:48] VITALS: BMI 29.8
== END 2024-10-07 10:10 | disposition home or self-care (01) ==
LOC: HO.HOS 09:32
PROVIDERS: PCP Internal Medicine; Visit Provider Physician Assistant
DX: M17.12 Unilateral primary osteoarthritis, left knee (principal)
CPT/HCPCS: 20610; 99203

== ENCOUNTER → 2024-10-07 09:35 | Outpatient (BNV) | payer MEDICARE, SELFPAY | PROVIDERS: Visit Provider Radiology Diagnostic Radiology | DX: M17.12 Unilateral primary osteoarthritis, left knee (principal) | CPT/HCPCS: 73560 ==

== ENCOUNTER 2024-12-04 08:36 | Outpatient (REF) | payer MEDICARE, SELFPAY ==
--- OUTSIDE RECORDS SUMMARY | 2024-12-04 08:42 | XMS_ITS | Patient Health Record ---
[facility] Address [address] [place] [address] Care Team Providers Care Science Editor Name Role Phone Yury DANG, Jonel Primary Care Provider Unavaila vince Lafleur Katherin Unavailable [phone] Reason For Referral No Information Medications Medication SIG (Take, Route, Frequency, Duration) Notes Start Date End Date Status Night Splint AFO - L1930 as directed 12/28/2015 Active Problems No Known Problems Plan Of Treatment No Information Insurance Providers Payer Name Payer Address Payer Phone Subscriber Number Group Number Insured Name Patient Relationship to Insured Coverage Start Date Coverage End Date [facility] [address] [place] [address] [id number] Keren Callahan Self - patient is the insured Medical (General) History Medical History History ICD Code Back,Hip,and Knee pain Chicken pox Surgical History Surgery Date(Month/Year) right knee replacement 10-14-2010 back surgery 2003 neck surgery 2004
[2024-12-04 10:27] LABS: MANUAL DIFF FLAG NO
[2024-12-04 10:34] LABS: Hematocrit 47.9 % (37.0-47.0); Hemoglobin 15.9 g/dl (12.0-16.0); Imm Gran Abs Auto 0.02 X10*3/uL (0.00-0.03); Imm Gran Pct Auto 0.3 % (0.0-0.4); Lymphocytes Absolute Auto 2.2 X10*3/uL (1.2-4.9); Mean Corpuscular HGB Conc 33.2 g/dl (31.0-35.0); Mean Corpuscular Hemoglobin 28.5 pg (27.0-33.0); Mean Corpuscular Volume 86.0 fL (80.0-98.0); NRBC Abs Auto 0.000 X10*3/uL (0.0-0.012); NRBC Pct Auto 0.0 /100WBC (0.0-0.2); Platelet Count 223 X10*3/uL (160-400); Red Blood Count 5.57 X10*6/uL (4.20-5.50); White Blood Count 6.5 X10*3/uL (4.8-10.8)
[2024-12-04 10:42] LABS: Hemoglobin A1C 146.9202 umol/L; Total Hemoglobin (HGBA1C) 3887.9305 umol/L
[2024-12-04 10:52] LABS: Alanine Aminotransferase 29 U/L (0-31); Albumin Level 4.4 g/dL (3.5-5.0); Alkaline Phosphatase 100 U/L (39-117); Anion Gap 11 (12-20); Aspartate Amino Transferase 26 U/L (5-31); Blood Urea Nitrogen 20 mg/dL (9-16); Calcium 9.6 mg/dL (8.4-10.2); Carbon Dioxide 26 mmol/L (22-29); Chloride 107 mmol/L (96-108); Cholesterol 186 mg/dL (<200); Estimated Glomerular Filt Rate > 60; HDL Cholesterol 36 mg/dL (>40); Potassium 4.7 mmol/L (3.3-5.1); Sodium 139 mmol/L (135-145); Total Protein 8.1 g/dL (6.5-8.0); Triglycerides 280 mg/dL (<150)
[2024-12-04 11:24] LABS: Microalbum/Creatinine Ratio Ur 7.1 ug/mg cr (<30)
== END 2024-12-04 08:37 | disposition home or self-care (01) ==
LOC: HO.HMGCLDS 08:36
PROVIDERS: Internal Medicine; PCP Internal Medicine; Visit Provider Internal Medicine
DX: E11.9 Type 2 diabetes mellitus without complications (principal); I10 Essential (primary) hypertension
CPT/HCPCS: 36415; 80053; 80061; 82043; 82570; 83036; 85025

== ENCOUNTER 2024-12-06 10:41 | Outpatient (AMB) | payer MEDICARE, SELFPAY ==
--- NOTE | 2024-12-06 10:47 | MHC.PC.OV ---
Vital Signs 12/06/24 10:48 Height 5 ft 8 in Weight 187 lb BMI 28.4 BP 122/78 Blood Pressure Location Lt brachial Position Sitting Respiration 18 Pulse 87 Pulse Source Pulse Oximeter Temp 98.2 F Temp Source Oral Pulse Oximetry (%) 97 Oxygen Delivery Method Room Air Intake Visit Reasons: 4m follow up Intake Note: Pt is here today for 4 months follow up visit. Allergies No Known Allergies Allergy (Verified 12/06/24 10:54) Medication List - Last Reconciled 12/06/24 by Nafisa Witt MD blood sugar diagnostic (OneTouch Ultra Test strips) 1 qd blood-glucose meter (Biotronics3DTouch Ultra2 Meter) As directed empagliflozin (Jardiance) 25 mg PO DAILY irbesartan 300 mg PO DAILY lancets (OneTouch Delica Plus Lancet) TEST EVERY DAY lancets (OneTouch Delica Plus Lancet) Test blood sugar once a day Ozempic (semaglutide) 2 mg (0.75 mL) subcut QWEEK NS Tobacco use date assessed: 12/06/24 Fall risk assessment: No Falls in past year Last assessed Fall Risk: 12/06/24 Dental Screening Dental Screen Date: 12/06/24 Did you have a dental visit in the last 12 months?: Yes Did you have a dental problem in the last 6 months where you did not have access to dental care?: No Was dental information given to patient?: Patient has dentist HPI 4m follow up HPI Details Patient presents for the follow-up of diabetes and hypertension controlled on current medications. 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 [facility] Medical History Diarrhea DM type 2 (diabetes mellitus, type 2) Annual physical exam Hypertension Surgical History (Updated 12/06/24 @ 11:37 by Nafisa Witt MD) History of colonoscopy H/O neck surgery Previous back surgery History of right knee joint replacement Family History Father Cancer Mother COPD (chronic obstructive pulmonary disease) Heart disease Social History Household Members Other:: walking, , 2 adults, 5 grandsons, Housing: Apartment Alcohol intake: current Alcohol intake frequency: a few times a month Patient Tobacco Use Status: Never used Tobacco e-Cigarette/Vaping Use: Never Used Second Hand Smoke Exposure: No service: No Current occupational status: retired Cognitive needs: No Hearing needs: No Vision needs: Yes Questionnaire Thrive Questionnaire Date Thrive assessed: 08/02/24 I am a: Patient What is your living situation today?: I have a steady place to live Within the past 12 months, did the food you bought not last and you didn't have the money to get more?: Never true Within the past 12 months, did you worry whether your food would run out before you got money to buy more?: Never true Do you have trouble paying for medicines?: No Do you have trouble getting transportation to medical appointments?: No Do you have trouble paying your heating and electricity bill?: No Do you have trouble taking care of your child, family member or friend?: No Do you have trouble with day-to-day activities such as bathing, preparing meals, shopping, managing finances, etc.?: No Are you currently unemployed and looking for a job?: No Are you interested in more education?: No Please select the resources that you would like help with: None Currently or been in a relationship where the following occur: No concerns reported THRIVE Score: 0 VIN-7 AMB Questionnaire VIN-7 Date VIN - 7 assessed: 08/06/24 Source: Developed by Drs. Ryan Gates, Rosaline Stratton, Morgan Melchor and colleagues, with an educational praveen from [employer]. Review of Systems Const All systems reviewed & are unremarkable except as noted in HPI and below Reports no additional complaints Eyes Reports no additional complaints ENT Reports no additional complaints Card Reports no additional complaints Resp Reports no additional complaints GI Reports no additional complaints Physical exam (Primary Care) Vital Signs: Last Vital Signs Temp 98.2 F 12/06/24 10:48 Pulse 87 12/06/24 10:48 Resp 18 12/06/24 10:48 BP 122/78 12/06/24 10:48 Pulse Ox 97 12/06/24 10:48 Oxygen Delivery Method Room Air 12/06/24 10:48 BMI result Body Mass Index 28.4 Tobacco/Smoking Status: Tobacco use Status Tobacco use date assessed 12/06/24 12/06/24 10:55 Patient Tobacco Use Status Never used Tobacco 12/06/24 10:48 e-Cigarette/Vaping Use Never Used 12/06/24 10:48 Thrive Assessment: Date of Thrive Assessment Date Thrive assessed 08/02/24 12/06/24 10:48 Currently or been in a relationship where the following occur: No concerns reported Const General: no acute distress HENMT Head: Yes normal to inspection Eyes General: appearance normal, both eyes and all related structures Neck Neck: Yes supple Resp Effort & Inspection: normal respiratory effort Auscultation: clear to auscultation bilaterally Cardio Rhythm: regular rhythm Heart sounds: S1 normal heart sound present and S2 normal heart sound present GI Inspection: Yes normal to inspection Percussion: Yes normal to percussion Auscultation: normal bowel sounds Coding Level of Care Code Est Pt Level 4 (69897) Diagnoses Hypertension I10 DM type 2 (diabetes mellitus, type 2) E11.9 History of colonoscopy Z98.890 Assessment & Plan Assessment & Plan (1) Hypertension: Code(s): I10 - Essential (primary) hypertension Category: Medical Plan: Continue irbesartan (2) DM type 2 (diabetes mellitus, type 2): Comment: Metformin causes diarrhea, patient refused statin Code(s): E11.9 - Type 2 diabetes mellitus without complications Category: Medical Plan: A1c is 5.6. Continue Jardiance and Ozempic. Follow-up in 5 months with a fasting labs before (3) History of colonoscopy: Comment: 10 yrs ago. Either [facility] or [facility], patient refused colonoscopy Cologuard will be sent 11/2024 Code(s): Z98.890 - Other specified postprocedural states Category: Surgical Plan: Patient refused colonoscopy Cologuard will be sent Orders: Orders Complete Blood Count Auto Diff 5 Months E11.9 - Type 2 diabetes mellitus without complications, I10 - Essential (primary) hypertension Hemoglobin A1c 5 Months E11.9 - Type 2 diabetes mellitus without complications, I10 - Essential (primary) hypertension Lipid Panel 5 Months E11.9 - Type 2 diabetes mellitus without complications, I10 - Essential (primary) hypertension Comprehensive [place]. Panel Fast 5 Months E11.9 - Type 2 diabetes mellitus without complications, I10 - Essential (primary) hypertension Microalbumin, Random (w Creat) 5 Months E11.9 - Type 2 diabetes mellitus without complications, I10 - Essential (primary) hypertension TSH reflex Free T4 5 Months E11.9 - Type 2 diabetes mellitus without complications, I10 - Essential (primary) hypertension Referrals Cologuard Test Z12.11 - Encounter for screening for malignant neoplasm of colon, Z12.12 - Encounter for screening for malignant neoplasm of rectum Medications: Refilled empagliflozin (Jardiance) 25 mg PO DAILY 90 tabs 3RF Ozempic (semaglutide) 2 mg (0.75 mL) subcut QWEEK 3 mL 3RF NS
[2024-12-06 10:48] VITALS: BP 122/78; PULSE 87; RESP 18; TEMP 36.8; O2SAT 97; BMI 28.4
--- OUTSIDE RECORDS SUMMARY | 2024-12-06 11:12 | XMS_ITS | Patient Health Record ---
[facility] Address [address] [facility] [place] [address] Care Team Providers Care Industrial Engineering Analyst Name Role Phone Yury DANG, Jonel Primary Care Provider Unavaila vince Lafleur Katherin Unavailable [phone] Reason For Referral No Information Medications Medication SIG (Take, Route, Frequency, Duration) Notes Start Date End Date Status Night Splint AFO - L1930 as directed 12/28/2015 Active Problems No Known Problems Plan Of Treatment No Information Insurance Providers Payer Name Payer Address Payer Phone Subscriber Number Group Number Insured Name Patient Relationship to Insured Coverage Start Date Coverage End Date [facility] [address] [place] [address] [phone] [id number] Keren Callahan Self - patient is the insured Medical (General) History Medical History History ICD Code Back,Hip,and Knee pain Chicken pox Surgical History Surgery Date(Month/Year) right knee replacement 10-14-2010 back surgery 2003 neck surgery 2004
--- OUTSIDE RECORDS SUMMARY | 2024-12-06 11:12 | XMS_ITS | Clinical Summary ---
Author Organization [facility] Address [address] [address] Phone Care Team Providers Care Hide And Skin Classer Name Role Phone Pcp, Unknown Primary Care Provider Unavailabl e Family History Medical History Relation Comments Hypertension Maternal Grandmother 2 Hypertension Mother 2 Stroke Mother 2 Relation Status Comments Maternal Grandmother 1 Maternal Grandmother 2 Mother 1 Mother 2 Social History Tobacco Use Types Packs/Day Years Used Date Smoking Tobacco: Never Assessed Education Answer Date Recorded Are you interested in more education? Not on jose m e 09/16/2022 Are you concerned about learning? Not on file 09/16/2022 No 09/16/2022 No 09/16/2022 Digital Access Answer Date Recorded No 10/17/2022 No 10/17/2022 Reliable internet access at home? Not on file 10/17/2022 Device with a working camera? Not on file Comments Unknown Sex and Gender Information Value Date Recorded Sex Assigned at Not on file Legal Sex Female 9:54 PM EDT Gender Identity Not on file Sexual Orientation Not on file Last Filed Vital Signs Vital Sign Reading Time Taken Comments Blood Pressure 128/60 04/05/2016 3:10 AM EST Pulse 92 04/05/2016 3:10 AM EST Temperature 36.7 C (98.1 F) 04/05/2016 3:10 AM EST Respiratory Rate 16 04/05/2016 3:10 AM EST Oxygen Saturation - - Inhaled Oxygen Concentration - - Weight 91.6 kg (202 lb) 04/05/2016 3:10 AM EST Height 171.5 cm (5' 7.5 ) 04/05/2016 3:10 AM EST Body Mass Index 31.17 04/05/2016 3:10 AM EST Plan of Treatment Health Maintenance Due Date Last Done Comments DEPRESSION SCREENING 1967 SMOKING Hx and SMOKELESS TOB ACCO SCREENING 09/24/1968 HEPATITIS C SCREENING 09/24/1973 COLOGUARD 09/24/2000 COLONOSCOPY 09/24/2000 COLORECTAL CANCER SCREENING 09/24/2000 FIT TEST 09/24/2000 FOBT 09/24/2000 SIGMOIDOSCOPY 09/24/2000 VIRTUAL COLONOSCOPY 09/24/2000 PNEUMOCOCCAL VACCINES (50+ y ears) (1 of 1 - PCV) 09/24/2005 ZOSTER VACCINES (1 of 2) 09/24/2005 MAMMOGRAM 02/24/2018 02/25/2016 OSTEOPOROSIS SCREENING INITI AL (ONE-TIME) 09/24/2020 LIPID PANEL 03/29/2021 03/29/2016 COVID-19 VACCINE (2 - 2023-2 5 season) 2024 09/03/2020 Adult Td,Tdap Booster 01/04/2025 01/04/2015 RSV VACCINE (1 - 1-dose 75+ series) 09/24/2030 HEPATITIS A VACCINES Aged Out No long er eligible based on patient's age to complete this topic HIB VACCINES Aged Out No longer eligi ble based on patient's age to complete this topic MENINGOCOCCAL VACCINES (ACWY) Aged Out No longer eligible based on patient's age to complete this topic MENINGOCOCCAL VACCINES (B) Aged Out N o longer eligible based on patient's age to complete this topic Medical Devices Not on file Procedures Procedure Name Priority Date/Time Associated Diagnosis Comments OUTSIDE LDL Routine 03/29/2016 from Last 3 Months or Most Recently Relevant to Health Maintenance Results * Outside LDL (03/29/2016) LDL - External 112 50 - 250 mg/ml us Historical Provider LAB BLOOD ORDERABLES Dasha l Result from Last 3 Months or Most Recently Relevant to Health Maintenance Care Teams Hide And Skin Classer Relationship Specialty Start Date End Date Pcp, Unknown PCP - General 02/18/19 Additional Source Comments The information contained in this document represents components of the legal health record. It is not the complete legal health record.[facility]
== END 2024-12-06 11:38 | disposition home or self-care (01) ==
LOC: HO.HMCC 10:42
PROVIDERS: PCP Internal Medicine; Visit Provider Internal Medicine
DX: I10 Essential (primary) hypertension (principal); E11.9 Type 2 diabetes mellitus without complications; Z98.890 Other specified postprocedural states

== ENCOUNTER → 2024-12-06 10:41 | Outpatient (BNVA) | payer MEDICARE, SELFPAY | PROVIDERS: PCP Internal Medicine; Visit Provider Internal Medicine | DX: I10 Essential (primary) hypertension (principal); E11.9 Type 2 diabetes mellitus without complications; Z98.890 Other specified postprocedural states | CPT/HCPCS: 99212 ==

== ENCOUNTER 2025-05-06 08:40 | Outpatient (REF) | payer MEDICARE, SELFPAY ==
--- OUTSIDE RECORDS SUMMARY | 2025-05-06 09:20 | XMS_ITS | Patient Health Record ---
[facility] Address [address] [facility] [place] [address] Care Team Providers Care Textile Engineer Name Role Phone Yury DANG, Jonel Primary Care Provider Unavaila vince Lafleur Katherin Unavailable [phone] Reason For Referral No Information Medications Medication SIG (Take, Route, Frequency, Duration) Notes Start Date End Date Status Night Splint AFO - L1930 as directed 12/28/2015 Active Problems No Known Problems Plan Of Treatment No Information Insurance Providers Payer Name Payer Address Payer Phone Subscriber Number Group Number Insured Name Patient Relationship to Insured Coverage Start Date Coverage End Date [facility] [address] [place] [address] [id number] Keren Callahan Self - patient is the insured Medical (General) History Medical History History ICD Code Back,Hip,and Knee pain Chicken pox Surgical History Surgery Date(Month/Year) right knee replacement 10-14-2010 back surgery 2003 neck surgery 2004
[2025-05-06 10:30] LABS: MANUAL DIFF FLAG NO
[2025-05-06 10:41] LABS: Hematocrit 49.1 % (37.0-47.0); Hemoglobin 15.8 g/dl (12.0-16.0); Imm Gran Abs Auto 0.01 X10*3/uL (0.00-0.03); Imm Gran Pct Auto 0.2 % (0.0-0.4); Lymphocytes Absolute Auto 1.9 X10*3/uL (1.2-4.9); Mean Corpuscular HGB Conc 32.2 g/dl (31.0-35.0); Mean Corpuscular Hemoglobin 27.9 pg (27.0-33.0); Mean Corpuscular Volume 86.6 fL (80.0-98.0); NRBC Abs Auto 0.000 X10*3/uL (0.0-0.012); NRBC Pct Auto 0.0 /100WBC (0.0-0.2); Platelet Count 206 X10*3/uL (160-400); Red Blood Count 5.67 X10*6/uL (4.20-5.50); White Blood Count 6.3 X10*3/uL (4.8-10.8)
[2025-05-06 11:40] LABS: Microalbum/Creatinine Ratio Ur 12.1 ug/mg cr (<30)
[2025-05-06 11:45] LABS: Alanine Aminotransferase 22 U/L (0-31); Albumin Level 4.7 g/dL (3.5-5.0); Alkaline Phosphatase 83 U/L (39-117); Anion Gap 15 (12-20); Aspartate Amino Transferase 23 U/L (5-31); Blood Urea Nitrogen 22 mg/dL (9-16); Calcium 10.3 mg/dL (8.4-10.2); Carbon Dioxide 27 mmol/L (22-29); Chloride 105 mmol/L (96-108); Cholesterol 188 mg/dL (<200); Estimated Glomerular Filt Rate > 60; HDL Cholesterol 43 mg/dL (>40); Potassium 4.8 mmol/L (3.3-5.1); Sodium 142 mmol/L (135-145); Total Protein 8.3 g/dL (6.5-8.0); Triglycerides 210 mg/dL (<150)
== END 2025-05-06 08:41 | disposition home or self-care (01) ==
LOC: HO.HMGCLDS 08:40
PROVIDERS: PCP Internal Medicine; Visit Provider Internal Medicine
DX: E11.9 Type 2 diabetes mellitus without complications (principal); I10 Essential (primary) hypertension
CPT/HCPCS: 36415; 80053; 80061; 82043; 82570; 83036; 84443; 85025

== ENCOUNTER 2025-05-08 08:00 | Outpatient (AMB) | payer MEDICARE, SELFPAY ==
--- OUTSIDE RECORDS SUMMARY | 2025-05-08 08:07 | XMS_ITS | Patient Health Record ---
[facility] Address [address] [facility] [place] [address] Care Team Providers Care Circular Distributor Name Role Phone Yury DANG, Jonel Primary Care Provider Unavaila vince Lafleur Katherin Unavailable [phone] Reason For Referral No Information Medications Medication SIG (Take, Route, Frequency, Duration) Notes Start Date End Date Status Night Splint AFO - L1930 as directed 12/28/2015 Active Problems No Known Problems Plan Of Treatment No Information Insurance Providers Payer Name Payer Address Payer Phone Subscriber Number Group Number Insured Name Patient Relationship to Insured Coverage Start Date Coverage End Date [facility] [address] [place] [address] [phone] [id number] Keren Callahan Self - patient is the insured Medical (General) History Medical History History ICD Code Back,Hip,and Knee pain Chicken pox Surgical History Surgery Date(Month/Year) right knee replacement 10-14-2010 back surgery 2003 neck surgery 2004
[2025-05-08 08:22] VITALS: BP 110/78; PULSE 78; RESP 17; TEMP 36.6; O2SAT 96; BMI 27.5
--- NOTE | 2025-05-08 08:22 | A.OFFVIS_ITS ---
Intake Vital Signs 05/08/25 08:22 Height 5 ft 8 in Weight 181 lb BMI 27.5 BP 110/78 Blood Pressure Location Lt brachial Position Sitting Respiration 17 Pulse 78 Pulse Source Pulse Oximeter Temp 97.9 F Temp Source Oral Pulse Oximetry (%) 96 Oxygen Delivery Method Room Air Intake Visit Reasons: SWV [id number] Intake Note: Pt is here today for AWV. Allergies No Known Allergies Allergy (Verified 05/08/25 08:24) Medication List - Last Reconciled 05/08/25 by Nafisa Witt MD blood sugar diagnostic (OneTouch Ultra Test strips) 1 qd blood-glucose meter (OneTouch Ultra2 Meter) As directed empagliflozin (Jardiance) 25 mg PO DAILY irbesartan 300 mg PO DAILY lancets (OneTouch Delica Plus Lancet) TEST EVERY DAY lancets (OneTouch Delica Plus Lancet) Test blood sugar once a day Ozempic (semaglutide) 2 mg (0.75 mL) subcut QWEEK NS HPI SWV G0438 HPI Details Initiated the conversation about Advanced Directives. Advanced Directives help? patients prepare for current and future decisions about their medical treatment? and place of care. Discussed with patient that it is a process where a patients? current condition and prognosis are reviewed, their wishes for information? regarding their illness are elicited, and likely medical dilemmas are presented? and options discussed. The form can be amended as needed, reviewed yearly and? make changes as needed IPPE/AWV ? year old presents? for her ? Annual? Wellness Visit, initial visit.? Medical / Social History Reviewed? Past Medical History ?Yes? . ? [place]? of Care / Care Team list updated ?Yes . ? Surgical/Hospitalization? History ?Yes . ? Current Medications? (including OTC and supplements) ?Yes . ? Family History ?Yes? . ? Tobacco? Control form ?Yes . ? AUDIT-C (Alcohol use) form? ?Yes . ? Illicit drug use in Social? History ?Yes . ? Current diagnosis of? depression? ?No ? Appropriate PHQ2/PHQ9? completed ?Yes . ? Data entered by ?Medical? Ambulance Driver and reviewed by provider ? Fall Risk ? Fall? History? Have you had any falls with? injury in the past year? ?No . ? Have you had two or more? falls in the past year? ?No . ? Fall Risk Assessment: ?No? falls in the past year . ? HRA filled out by? the patient, reviewed by Provider and scanned. ? IPPE/AWV ? Balance? [place]? ?Yes . ? Tandem? walk ?Yes . ? Walk and? Turn ?Yes . ? Rise from? sit to stand ?Yes . ?Vision? Corrective? lens ?Yes ? Vision? screen ? Up-to-date, has an appointment [] for vision? screening and glaucoma screening ?Hearing? Whisper? test ?pass .? Initiated the conversation about Advanced Directives. Advanced Directives help? patients prepare for current and future decisions about their medical treatment? and place of care. Discussed with patient that it is a process where a patients? current condition and prognosis are reviewed, their wishes for information? regarding their illness are elicited, and likely medical dilemmas are presented? and options discussed. The form can be amended as needed, reviewed yearly and? make changes as needed Written? Plan?Completed. See Patient? Documents. [facility] Medical History Diarrhea DM type 2 (diabetes mellitus, type 2) Annual physical exam Hypertension Surgical History History of colonoscopy H/O neck surgery Previous back surgery History of right knee joint replacement Family History Father Cancer Mother COPD (chronic obstructive pulmonary disease) Heart disease Social History Household Members Other:: walking, , 2 adults, 5 grandsons, Housing: Apartment Alcohol intake: current Alcohol intake frequency: a few times a month Patient Tobacco Use Status: Never used Tobacco e-Cigarette/Vaping Use: Never Used Second Hand Smoke Exposure: No service: No Current occupational status: retired Cognitive needs: No Hearing needs: No Vision needs: Yes Questionnaire Medicare Wellness Checkup [age] What gender do you identify with?: female During the past 4 weeks, how much have you been bothered by emotional problems such as feeling anxious, depressed, irritable, sad or downhearted, and blue?: not at all During the past 4 weeks, has your physical & emotional health limited your social activities with family, friends, neighbors, or groups?: not at all During the past 4 weeks, how much bodily pain have you generally had?: very mild pain During the past 4 weeks, was someone available to help you if you needed & wanted help?: yes, as much as I wanted During the past 4 weeks, what was the hardest physical activity you could do for at least 2 minutes?: very heavy Can you get to places out of walking distance without help? (For eg., can you travel alone on buses, taxis or drive your car?): Yes Can you go shopping for groceries or clothes without someone's help?: Yes Can you prepare your own meals?: Yes Can you do your housework without help?: Yes Because of any health problems, do you need the help of another person with your personal care needs such as eating, bathing, dressing or getting around the house?: No Can you handle your own money without help?: Yes During the past 4 weeks, how would you rate your health in general?: very good During the past 4 weeks how have things been going for you?: very well; could hardly better Are you having difficulties driving your car?: no Do you always fasten your seat belt when you are in a car?: yes, usually During past 4 weeks, have you been bothered by the following: never: Falling or dizzy when standing up, Sexual problems?, Trouble eating well?, Teeth or denture problems?, Problems using the telephone? and Tiredness or fatigue? Have you fallen 2 or more times in the past year?: No Are you afraid of falling?: No Are you a smoker?: no During the past 4 weeks, how many drinks of wine, beer, or other alcoholic beverages did you have?: 1 drink or less per week Do you exercise for about 20 minutes 3 or more times a week?: yes, most of the time Have you been given information to help with the following?: no: Hazards in your house that might hurt you? and no: Keeping track of your medications? How often do you have trouble taking medicines the way you have been told to take them?: I always take medicine as prescribed How confident are you that you can control & manage most of your health problems?: very confident What is your race?: White Mini Mental State Exam (MMSE) Orientation What is the (year) (season) (date) (day) (month)?: year, season, date, day and month Where are we (state) (county) (town or city) (hospital) (floor)?: state, county, town or city, hospital/clinic and floor Registration Name of 3 unrelated objects clearly and slowly, then ask patient to repeat all 3 of them. (1st repeat determines score. Make sure they can repeat all three): object 1, object 2 and object 3 Attention & Calculation (CHOOSE ONE) Spell WORLD backwards (DLROW): 5 letters Recall Ask patient to repeat the 3 items from question #3.: object 1, object 2 and object 3 Language Show patient a wristwatch & ask what it is. Repeat for pencil.: watch and pencil Ask the patient to repeat the phrase 'No ifs, ands, or buts' after you.: correct Ask the patient to 'take a piece of paper with their right hand' 'fold paper in half' 'place paper on floor': take paper in right hand, fold paper in half and place paper on floor Print the sentence 'CLOSE YOUR EYES' on a piece. If patient actually closes eyes then score.: followed written direction Give patient a blank piece of paper & ask to write a sentence. Score if it contains a noun & verb.: sentence contains subject and verb Score Score: 29 PHQ-9 Over the last 2 weeks, how often have you been bothered by any of the following problems? 1. Little interest or pleasure in doing things: not at all 2. Feeling down, depressed, or hopeless: not at all 3. Trouble falling or staying asleep, or sleeping too much: not at all 4. Feeling tired or having little energy: not at all 5. Poor appetite or overeating: not at all 6. Feeling bad about yourself - or that you are a failure or have let yourself or your family down: not at all 7. Trouble concentrating on things, such as reading the newspaper or watching television: not at all 8. Moving or speaking so slowly that other people could have noticed. Or the opposite - being so fidgety or restless that you have been moving around a lot more than usual: not at all 9. Thoughts that you would be better off or of hurting yourself in some way: not at all Total score: 0 Depression Screening Interpretation: Negative Depression Screening Done: Yes Source: Developed by Drs. Ryan Gates, Rosaline Stratton, Morgan Melchor and colleagues, with an educational praveen from [employer]. Review of Systems Const All systems reviewed & are unremarkable except as noted in HPI and below Eyes Reports no additional complaints ENT Reports no additional complaints Card Reports no additional complaints Resp Reports no additional complaints GI Reports no additional complaints Reports no additional complaints Musc Reports no additional complaints Physical Exam Vital Signs: Last Vital Signs Temp 97.9 F 12/18/25 08:22 Pulse 78 05/08/25 08:22 Resp 17 05/08/25 08:22 BP 110/78 05/08/25 08:22 Pulse Ox 96 05/08/25 08:22 Oxygen Delivery Method Room Air 05/08/25 08:22 BMI result Body Mass Index 27.5 Const General: no acute distress HEENT Head: Yes normal to inspection Ears: TM's normal bilaterally Face and sinus: Yes normal facial exam Mouth: Normal oral and palatal mucosa present Neck Neck: Yes no lymphadenopathy and Yes supple Resp Effort & Inspection: normal respiratory effort Auscultation: clear to auscultation bilaterally Cardio Rhythm: regular rhythm Heart sounds: S1 normal heart sound present and S2 normal heart sound present GI Inspection: Yes normal to inspection Palpation (GI): Soft to palpation Percussion: Yes normal to percussion Auscultation: normal bowel sounds Assessment & Plan Assessment & Plan (1) Annual physical exam: Comment: Negative Cologuard January 2025 Code(s): Z00.00 - Encounter for general adult medical examination without abnormal findings Plan: Well-balanced diet regular physical activity discussed with the patient. For vaginal dryness and increased urinary incontinence patient will try estradiol vaginal cream. (2) Hypertension: Code(s): I10 - Essential (primary) hypertension Plan: Continue current medications (3) DM type 2 (diabetes mellitus, type 2): Comment: Metformin causes diarrhea, patient refused statin Code(s): E11.9 - Type 2 diabetes mellitus without complications Plan: A1c is 5.7 continue Jardiance and Ozempic follow-up in 6 months with a fasting labs before Orders: Orders Vitamin B12 and Folate Today E53.8 - Deficiency of other specified B group vitamins, E55.9 - Vitamin D deficiency, unspecified Complete Blood Count Auto Diff 6 Months E11.9 - Type 2 diabetes mellitus without complications, E55.9 - Vitamin D deficiency, unspecified, I10 - Essential (primary) hypertension Microalbumin, Random (w Creat) 6 Months E11.9 - Type 2 diabetes mellitus without complications, E55.9 - Vitamin D deficiency, unspecified, I10 - Essential (primary) hypertension UA w Microscopic Today Z00.00 - Encounter for general adult medical examination without abnormal findings Vitamin D 25-OH Total Today E53.8 - Deficiency of other specified B group vitamins, E55.9 - Vitamin D deficiency, unspecified Comprehensive [place]. Panel Fast 6 Months E11.9 - Type 2 diabetes mellitus without complications, E55.9 - Vitamin D deficiency, unspecified, I10 - Essential (primary) hypertension Lipid Panel 6 Months E11.9 - Type 2 diabetes mellitus without complications, E55.9 - Vitamin D deficiency, unspecified, I10 - Essential (primary) hypertension Hemoglobin A1c 6 Months E11.9 - Type 2 diabetes mellitus without complications, E55.9 - Vitamin D deficiency, unspecified, I10 - Essential (primary) hypertension Vitamin D 25-OH Total 6 Months E11.9 - Type 2 diabetes mellitus without complications, E55.9 - Vitamin D deficiency, unspecified, I10 - Essential (primary) hypertension Medications: New estradiol 0.01%(0.1mg/gram) 1 g vaginal 2XW 42.5 grams 4RF meloxicam 7.5 mg PO DAILY 30 tabs 0RF Quality Reporting (2019) Depression/Bipolar (159/160/161/177) PHQ-9: Total score: 0 Coding Level of Care Code Medicare Subsequent (G0439) Diagnoses Annual physical exam Z00.00 Hypertension I10 DM type 2 (diabetes mellitus, type 2) E11.9 CPT Codes Advance Care Planning - Advance Care Planning discussion: On file, no changes ([id number]) Advance Care Planning - Time spent: 1-15 minutes, on File ([id number]) Advance Care Planning Advance Care Planning discussion: On file, no changes Forms completed: Health Care Proxy Time spent: 1-15 minutes, on File
== END 2025-05-08 12:02 | disposition home or self-care (01) ==
LOC: HO.HMCC 08:01
PROVIDERS: PCP Internal Medicine; Visit Provider Internal Medicine
DX: Z00.00 Encounter for general adult medical examination without abnormal findings (principal); I10 Essential (primary) hypertension; E11.9 Type 2 diabetes mellitus without complications